=== PATIENT | male | born 1940 | race Caucasian/White ===

== ENCOUNTER 2020-01-23 08:07 | Outpatient (REF) | payer MEDICARE, SELFPAY ==
[2020-01-23 12:46] LABS: Alanine Aminotransferase 16 U/L (0-40); Albumin Level 3.9 g/dL (3.5-5.0); Alkaline Phosphatase 66 U/L (39-117); Anion Gap 12 (12-20); Aspartate Amino Transferase 17 U/L (5-37); Bilirubin Total 0.7 mg/dL (0.0-1.0); Blood Urea Nitrogen 14 mg/dL (9-16); Calcium 8.7 mg/dL (8.4-10.2); Carbon Dioxide 29 mmol/L (22-29); Chloride 102 mmol/L (96-108); Cholesterol 200 mg/dL; Estimated Glomerular Filt Rate > 60; Glucose Fasting 119 mg/dL (60-99); HDL Cholesterol 40 mg/dL; LDL Cholesterol Calculated 117 mg/dl; Sodium 139 mmol/L (135-145); Triglycerides 216 mg/dL
[2020-01-23 12:52] LABS: Creatinine Urine 103.56 mg/dL; Microalbumin Urine < 5.0 mg/L
== END 2020-01-23 08:08 | disposition home or self-care (01) ==
LOC: HO.HMGCLDS 08:07
PROVIDERS: PCP Internal Medicine; Visit Provider Internal Medicine
DX: E78.2 Mixed hyperlipidemia (principal); R73.9 Hyperglycemia, unspecified
CPT/HCPCS: 80053; 80061; 82043

== ENCOUNTER 2020-10-13 08:40 | Outpatient (REF) | payer MEDICARE, SELFPAY ==
[2020-10-13 11:45] LABS: Estimated Average Glucose 146 mg/dL; Hemoglobin A1c % 6.7 %
[2020-10-13 11:46] LABS: Alanine Aminotransferase 15 U/L (0-40); Alkaline Phosphatase 54 U/L (39-117); Anion Gap 13 (12-20); Aspartate Amino Transferase 17 U/L (5-37); Bilirubin Total 0.5 mg/dL (0.0-1.0); Blood Urea Nitrogen 14 mg/dL (9-16); Carbon Dioxide 26 mmol/L (22-29); Chloride 106 mmol/L (96-108); Cholesterol 191 mg/dL; Estimated Glomerular Filt Rate > 60; Glucose Fasting 132 mg/dL (60-99); HDL Cholesterol 41 mg/dL; LDL Cholesterol Calculated 122 mg/dl; Potassium 4.5 mmol/L (3.3-5.1); Sodium 140 mmol/L (135-145); Total Protein 7.1 g/dL (6.5-8.0); Triglycerides 144 mg/dL
[2020-10-13 12:10] LABS: TSH reflex Free T4 0.76 uIU/mL (0.32-4.0)
== END 2020-10-13 08:41 | disposition home or self-care (01) ==
LOC: HO.HMGCLDS 08:40
PROVIDERS: PCP Internal Medicine; Visit Provider Internal Medicine
DX: Z00.00 Encounter for general adult medical examination without abnormal findings (principal); E78.5 Hyperlipidemia, unspecified; I10 Essential (primary) hypertension; R73.9 Hyperglycemia, unspecified
CPT/HCPCS: 36415; 80053; 80061; 83036; 84443

== ENCOUNTER 2021-05-24 14:10 | Outpatient (REF) | payer MEDICARE, SELFPAY ==
[2021-05-24 16:58] LABS: Hematocrit 46.4 % (42.0-52.0); Hemoglobin 15.3 g/dl (14.0-18.0); Mean Corpuscular Hemoglobin 31.9 pg (27.0-33.0); Mean Corpuscular Volume 96.9 fL (80.0-98.0); Mean Platelet Volume 9.3 fL (9.4-12.4); Platelet Count 298 X10*3/uL (160-400); Red Blood Count 4.79 X10*6/uL (4.60-5.80); Red Cell Distribution Width 14.1 % (11.0-16.0); White Blood Count 7.9 X10*3/uL (4.8-10.8)
[2021-05-24 16:59] LABS: Appearance Urine CLEAR; Color Urine YELLOW; Glucose Urine UA NEG (NEG); Leukocyte Esterase Urine NEG (NEG); Nitrite Urine NEG (NEG); Specific Gravity - Urine 1.015 (1.005-1.025); UACC Culture Trigger NO; Urine Blood TRACE (NEG); Urine Ketones 40 MG/DL (NEG); Urine Protein NEG (NEG-TRACE)
[2021-05-24 17:12] LABS: Alanine Aminotransferase 20 U/L (0-40); Albumin Level 4.3 g/dL (3.5-5.0); Alkaline Phosphatase 71 U/L (39-117); Anion Gap 13 (12-20); Aspartate Amino Transferase 21 U/L (5-37); Bilirubin Total 0.8 mg/dL (0.0-1.0); Blood Urea Nitrogen 14 mg/dL (9-16); Calcium 9.4 mg/dL (8.4-10.2); Carbon Dioxide 25 mmol/L (22-29); Chloride 102 mmol/L (96-108); Cholesterol 225 mg/dL; Estimated Average Glucose 137 mg/dL; Estimated Glomerular Filt Rate > 60; Glucose Fasting 94 mg/dL (60-99); HDL Cholesterol 43 mg/dL; Hemoglobin A1c % 6.4 %; LDL Cholesterol Calculated 149 mg/dl; Potassium 4.9 mmol/L (3.3-5.1); Sodium 135 mmol/L (135-145); Total Protein 7.8 g/dL (6.5-8.0); Triglycerides 169 mg/dL
[2021-05-24 17:30] LABS: RBC Urine 0-2 /HPF (0); WBC Urine 0-2 /HPF (0-4)
[2021-05-24 17:32] LABS: TSH reflex Free T4 0.54 uIU/mL (0.32-4.0)
== END 2021-05-24 14:11 | disposition home or self-care (01) ==
LOC: HO.HMGCLDS 14:10
PROVIDERS: Visit Provider Internal Medicine
DX: R73.9 Hyperglycemia, unspecified (principal); E78.5 Hyperlipidemia, unspecified; I25.10 Atherosclerotic heart disease of native coronary artery without angina pectoris
CPT/HCPCS: 36415; 80053; 80061; 81001; 83036; 84443; 85027

== ENCOUNTER 2022-04-18 10:10 | Outpatient (REF) | payer MEDICARE, SELFPAY ==
[2022-04-18 11:28] LABS: MANUAL DIFF FLAG NO
[2022-04-18 11:43] LABS: Basophils Absolute Auto 0.1 X10*3/uL (0.0-0.2); Basophils Percent Auto 0.7 % (0-2); Eosinophils Absolute Auto 0.1 X10*3/uL (0.0-0.4); Eosinophils Percent Auto 0.7 % (0-4); Hematocrit 44.3 % (42.0-52.0); Hemoglobin 14.9 g/dl (14.0-18.0); Imm Gran Abs Auto 0.03 X10*3/uL (0.00-0.03); Imm Gran Pct Auto 0.4 % (0.0-0.4); Lymphocytes Percent Auto 40.6 % (20-40); Mean Corpuscular HGB Conc 33.6 g/dl (31.0-36.0); Mean Corpuscular Hemoglobin 31.6 pg (27.0-33.0); Mean Corpuscular Volume 93.9 fL (80.0-98.0); Mean Platelet Volume 9.2 fL (9.4-12.4); Monocytes Absolute Auto 0.5 X10*3/uL (0.1-1.2); Monocytes Percent Auto 6.3 % (2-11); Neutrophils Absolute Auto 3.9 x10*3/uL (2.0-8.3); Neutrophils Percent Auto 51.3 % (45-73); Platelet Count 302 X10*3/uL (160-400); Red Blood Count 4.72 X10*6/uL (4.60-5.80); Red Cell Distribution Width 13.6 % (11.0-16.0); White Blood Count 7.5 X10*3/uL (4.8-10.8)
[2022-04-18 12:03] LABS: Estimated Average Glucose 146 mg/dL; Hemoglobin A1c % 6.7 %
[2022-04-18 12:42] LABS: Alanine Aminotransferase 17 U/L (0-40); Albumin Level 4.2 g/dL (3.5-5.0); Alkaline Phosphatase 64 U/L (39-117); Anion Gap 14 (12-20); Aspartate Amino Transferase 16 U/L (5-37); Bilirubin Total 0.7 mg/dL (0.0-1.0); Blood Urea Nitrogen 17 mg/dL (9-16); Calcium 9.3 mg/dL (8.4-10.2); Carbon Dioxide 25 mmol/L (22-29); Chloride 106 mmol/L (96-108); Estimated Glomerular Filt Rate > 60; Glucose Fasting 136 mg/dL (60-99); Potassium 4.8 mmol/L (3.3-5.1); Sodium 140 mmol/L (135-145); TSH reflex Free T4 1.02 uIU/mL (0.32-4.0); Total Protein 7.3 g/dL (6.5-8.0)
== END 2022-04-18 10:11 | disposition home or self-care (01) ==
LOC: HO.HMGCLDS 10:10
PROVIDERS: PCP Internal Medicine; Visit Provider Internal Medicine
DX: E78.5 Hyperlipidemia, unspecified (principal); R73.9 Hyperglycemia, unspecified; I25.10 Atherosclerotic heart disease of native coronary artery without angina pectoris
CPT/HCPCS: 36415; 80053; 83036; 84443; 85025

== ENCOUNTER 2022-10-07 13:27 | Outpatient (AMB) | payer MEDICARE, SELFPAY ==
[2022-10-07 13:44] VITALS: BP 110/70; PULSE 70; O2SAT 96; BMI 27.7
--- NOTE | 2022-10-07 13:44 | MHC.PC.OV ---
Vital Signs 10/07/22 13:44 Height 5 ft 8 in Weight 182 lb 2 oz BMI 27.7 BP 110/70 Blood Pressure Location Rt brachial Position Sitting Pulse 70 Pulse Source Pulse Oximeter Pulse Oximetry (%) 96 Oxygen Delivery Method Room Air Intake Visit Reasons: high blood sugars Allergies No Known Allergies Allergy (Verified 04/18/22 09:29) Medication List - Last Reconciled 10/07/22 by Jessica Merritt MD No Known Home Meds Tobacco use date assessed: 04/18/22 HPI high blood sugars HPI Details Patient presents complaining of exertional chest tightness last week after walking 2 miles. Symptoms resolved at rest. Patient denies diaphoresis nausea vomiting associated with the pain. Patient denies nocturnal chest pain or shortness of breath. The symptoms are similar to the angina symptoms before a stent placement. [facility] Medical History Annual physical exam Blepharoptosis, bilateral BPH (benign prostatic hyperplasia) CAD (coronary artery disease) Hyperglycemia Hyperlipidemia Melanoma Surgical History H/O colonoscopy Nephrolithiasis Social History Housing: House Patient Tobacco Use Status: Former Tobacco user Quit Date: 20 years ago e-Cigarette/Vaping Use: Never Used Current occupational status: retired Cognitive needs: No Hearing needs: No Vision needs: No Review of Systems Const All systems reviewed & are unremarkable except as noted in HPI and below Reports no additional complaints Eyes Reports no additional complaints ENT Reports no additional complaints Card Reports no additional complaints Resp Reports no additional complaints GI Reports no additional complaints Reports no additional complaints Physical exam (Primary Care) Vital Signs: Last Vital Signs Pulse 70 10/07/22 13:44 BP 110/70 10/07/22 13:44 Pulse Ox 96 10/07/22 13:44 Oxygen Delivery Method Room Air 10/07/22 13:44 BMI result Body Mass Index 27.7 Tobacco/Smoking Status: Tobacco use Status Tobacco use date assessed 04/18/22 10/07/22 13:47 Patient Tobacco Use Status Former Tobacco user 10/07/22 13:47 e-Cigarette/Vaping Use Never Used 10/07/22 13:47 Const General: no acute distress HENMT Ears: hearing grossly normal bilaterally Face and sinus: Yes normal facial exam Neck Neck: Yes supple Resp Effort & Inspection: normal respiratory effort Auscultation: clear to auscultation bilaterally Cardio Rhythm: regular rhythm Heart sounds: S1 normal heart sound present and S2 normal heart sound present GI Inspection: Yes normal to inspection Palpation (GI): Soft to palpation Percussion: Yes normal to percussion Auscultation: normal bowel sounds Extrem General: Yes no clubbing, cyanosis or edema Results AMB Hemoglobin A1c AMB Hemoglobin A1c 6.3 % Last Edit by Prema Hernández CMA on 10/07/22 14:31 Results Reviewed Results Reviewed: Laboratory Last Values Hgb A1c (Clinic) 6.3 % (4.0-6.0) H 10/07/22 14:30 Assessment and Plan Assessment & Plan (1) Hyperglycemia: Code(s): R73.9 - Hyperglycemia, unspecified Plan: A1c today is 6.3, ADA diet discussed with the patient (2) Hyperlipidemia: Comment: Patient refused statin Code(s): E78.5 - Hyperlipidemia, unspecified Plan: Check lipid profile today (3) CAD (coronary artery disease): Comment: s/p 2 stents 2001 Code(s): I25.10 - Atherosclerotic heart disease of [place] coronary artery without angina pectoris Plan: For recurrent episode of chest tightness EKG done today showed normal sinus rhythm, right bundle branch block no acute ST-T changes. Patient will be referred for nuclear stress test to evaluate for reversible ischemia (4) Angina pectoris: Code(s): I20.9 - Angina pectoris, unspecified (5) Diabetes type 2, controlled: Code(s): E11.9 - Type 2 diabetes mellitus without complications Orders: Orders Comprehensive [place]. Panel Fast Today E78.5 - Hyperlipidemia, unspecified, I25.10 - Atherosclerotic heart disease of [place] coronary artery without angina pectoris, R73.9 - Hyperglycemia, unspecified IRON PROFILE Today E78.5 - Hyperlipidemia, unspecified, I25.10 - Atherosclerotic heart disease of [place] coronary artery without angina pectoris, R73.9 - Hyperglycemia, unspecified Lipid Panel Today E78.5 - Hyperlipidemia, unspecified, I25.10 - Atherosclerotic heart disease of [place] coronary artery without angina pectoris, R73.9 - Hyperglycemia, unspecified TSH reflex Free T4 Today E78.5 - Hyperlipidemia, unspecified, I25.10 - Atherosclerotic heart disease of [place] coronary artery without angina pectoris, R73.9 - Hyperglycemia, unspecified Complete Blood Count Auto Diff Today E78.5 - Hyperlipidemia, unspecified, I25.10 - Atherosclerotic heart disease of [place] coronary artery without angina pectoris, R73.9 - Hyperglycemia, unspecified CA stress test Today E11.9 - Type 2 diabetes mellitus without complications, I20.9 - Angina pectoris, unspecified, I25.10 - Atherosclerotic heart disease of [place] coronary artery without angina pectoris NM cardiolite stress test Today I20.9 - Angina pectoris, unspecified, I25.10 - Atherosclerotic heart disease of [place] coronary artery without angina pectoris AMB Hemoglobin A1c Today E11.9 - Type 2 diabetes mellitus without complications Coding Level of Care Code Est Pt Level 4 (19594) Diagnoses Hyperglycemia R73.9 Hyperlipidemia E78.5 CAD (coronary artery disease) I25.10 Angina pectoris I20.9 Diabetes type 2, controlled E11.9
== END 2022-10-07 15:02 | disposition home or self-care (01) ==
PROVIDERS: PCP Internal Medicine; Visit Provider Internal Medicine
DX: I25.119 Atherosclerotic heart disease of native coronary artery with unspecified angina pectoris (principal); E11.65 Type 2 diabetes mellitus with hyperglycemia; E78.5 Hyperlipidemia, unspecified
CPT/HCPCS: 83036; 99214

== ENCOUNTER 2022-10-07 14:40 | Outpatient (REF) | payer MEDICARE, SELFPAY ==
[2022-10-07 16:09] LABS: MANUAL DIFF FLAG NO
[2022-10-07 16:29] LABS: Basophils Percent Auto 0.5 % (0-2); Eosinophils Absolute Auto 0.1 X10*3/uL (0.0-0.4); Eosinophils Percent Auto 0.8 % (0-4); Hematocrit 42.1 % (42.0-52.0); Hemoglobin 14.2 g/dl (14.0-18.0); Imm Gran Abs Auto 0.02 X10*3/uL (0.00-0.03); Imm Gran Pct Auto 0.3 % (0.0-0.4); Lymphocytes Absolute Auto 3.4 X10*3/uL (1.2-4.9); Lymphocytes Percent Auto 43.3 % (20-40); Mean Corpuscular HGB Conc 33.7 g/dl (31.0-36.0); Mean Corpuscular Volume 94.8 fL (80.0-98.0); Mean Platelet Volume 9.4 fL (9.4-12.4); Monocytes Absolute Auto 0.6 X10*3/uL (0.1-1.2); Monocytes Percent Auto 7.2 % (2-11); Neutrophils Absolute Auto 3.8 x10*3/uL (2.0-8.3); Neutrophils Percent Auto 47.9 % (45-73); Platelet Count 291 X10*3/uL (160-400); Red Blood Count 4.44 X10*6/uL (4.60-5.80); Red Cell Distribution Width 14.2 % (11.0-16.0); White Blood Count 7.9 X10*3/uL (4.8-10.8)
[2022-10-07 16:53] LABS: Alanine Aminotransferase 14 U/L (0-40); Albumin Level 4.1 g/dL (3.5-5.0); Alkaline Phosphatase 66 U/L (39-117); Anion Gap 15 (12-20); Aspartate Amino Transferase 19 U/L (5-37); Bilirubin Total 0.9 mg/dL (0.0-1.0); Blood Urea Nitrogen 11 mg/dL (9-16); Calcium 9.3 mg/dL (8.4-10.2); Carbon Dioxide 22 mmol/L (22-29); Chloride 106 mmol/L (96-108); Cholesterol 195 mg/dL; Estimated Glomerular Filt Rate > 60; Glucose Fasting 95 mg/dL (60-99); HDL Cholesterol 46 mg/dL; Iron 160 mcg/dL (45-160); LDL Cholesterol Calculated 121 mg/dl; Percent Iron Saturation 57 % (15-50); Sodium 139 mmol/L (135-145); Total Iron Binding Capacity 279 mcg/dL (228-428); Total Protein 7.7 g/dL (6.5-8.0); Triglycerides 142 mg/dL; Unsaturated Iron Binding 119 ug/dL
[2022-10-07 17:10] LABS: TSH reflex Free T4 0.58 uIU/mL (0.32-4.0)
== END 2022-10-07 14:41 | disposition home or self-care (01) ==
LOC: HO.HMGCLDS 14:40
PROVIDERS: PCP Internal Medicine; Visit Provider Internal Medicine
DX: I25.10 Atherosclerotic heart disease of native coronary artery without angina pectoris (principal); I20.9 Angina pectoris, unspecified; E11.9 Type 2 diabetes mellitus without complications; E78.5 Hyperlipidemia, unspecified; R73.9 Hyperglycemia, unspecified
CPT/HCPCS: 36415; 80053; 80061; 83540; 84443; 85025

== ENCOUNTER → 2022-11-03 08:19 | Outpatient (REF) | payer MEDICARE, SELFPAY ==
--- NOTE | ~2022-11-03 | NM_ITS ---
Exercise myocardial perfusion study Indication: Angina pectoris to evaluate for myocardial ischemia Technique: The patient was brought in for a exercise perfusion study on 11/03/2022. Patient performed exercise and was monitored continuously. Within a minute of exercise injection, 30 mCi of sestamibi was given intravenously. Images were obtained using the SPECT gamma camera interlaced with the gating device. Images were obtained in supine position. Resting perfusion study was performed on 11/04/2022. Patient was administered 30 mCi of sestamibi intravenously at rest. Images were then obtained in supine position. Images obtained with and without CT attenuation. Total DLP 101 mGy-cm. Images were processed with the software and compared side to side in short axis, horizontal long axis and vertical long axis views. Findings: The stress perfusion study showed non attenuated images show absent uptake in the inferior as well as apical wall as well as the chest and inferolateral and severely reduced uptake in the lateral wall of the LV myocardium. Attenuation corrected images show absent uptake in the inferior and apical wall as well as inferolateral wall of the LV myocardium with severely reduced uptake in the lateral wall of the LV myocardium.. The gated study shows normal LV systolic function with calculated LVEF of 38%. LV cavity is mildly to moderately dilated size. The gated study shows reduced wall thickening and contraction of inferior inferolateral segments. Resting study shows minimally improved uptake in the inferior and mildly to moderately thickened inferolateral as well as normalized uptake in the lateral wall of the LV myocardium.. Gating at rest reveals normal systolic wall motion with ejection fraction at 57%. The findings are consistent with large area of possible severe ischemia in the inferior as well as inferolateral and moderate intensity ischemia in the lateral wall of the LV myocardium in RCA/circumflex territory.. NM/NM cardiolite stress test Impression: 1. Myocardial perfusion imaging study shows large area of possibly severe ischemia in the inferior as well as adjacent inferolateral moderate intensity lateral wall ischemia 2. Gated LVEF is 38% with stress and 57% with rest 3. Transient ischemic dilatation present EKG is positive for ischemia and discomfort
--- NOTE | 2022-11-03 08:21 | CA_ITS ---
Acquisition Time: 2022-11-03 08:54:54 Total Exercise Time: 00:09:33 Test Indications: ANGINA Medications: SEE H Protocol: OSMIN Max HR: 113 BPM 82% of Pred: 137 BPM Max BP: 158/090 mmHG Max Work Load: 11.0 METS Exercise stress test exercise 9 min 33 sec of Osmin protocol achieving 82& and 11 METs, with mild ot moderate SOB, 4/10 mid chest tightness, with isolarted PVCs, with normotensive response to exercise, without EKG chnages. Nuclear images pending. Test reviewed with Dr. Huerta. Referred By: Jessica Merritt Overread By: Troy Huerta
== END ==
LOC: HO.CARD 08:19
PROVIDERS: PCP Internal Medicine; Visit Provider Internal Medicine
DX: I25.119 Atherosclerotic heart disease of native coronary artery with unspecified angina pectoris (principal); E11.9 Type 2 diabetes mellitus without complications
CPT/HCPCS: 78452; 93017; A9500; J0280; J2785

== ENCOUNTER → 2022-11-03 09:24 | Outpatient (BNV) | payer MEDICARE, SELFPAY | PROVIDERS: PCP Internal Medicine; Visit Provider Internal Medicine Cardiovascular Disease | DX: I25.119 Atherosclerotic heart disease of native coronary artery with unspecified angina pectoris (principal) | CPT/HCPCS: 78452; 93016; 93018 ==

== ENCOUNTER 2022-11-21 10:25 | Outpatient (REF) | payer MEDICARE, SELFPAY ==
[2022-11-21 11:58] LABS: Hematocrit 42.6 % (42.0-52.0); Hemoglobin 14.4 g/dl (14.0-18.0); Mean Corpuscular HGB Conc 33.8 g/dl (31.0-36.0); Mean Corpuscular Hemoglobin 32.7 pg (27.0-33.0); Mean Corpuscular Volume 96.6 fL (80.0-98.0); Mean Platelet Volume 9.3 fL (9.4-12.4); Platelet Count 255 X10*3/uL (160-400); Red Blood Count 4.41 X10*6/uL (4.60-5.80); Red Cell Distribution Width 14.6 % (11.0-16.0); White Blood Count 8.1 X10*3/uL (4.8-10.8)
[2022-11-21 12:01] LABS: INTERNATIONAL NORM RATIO 0.9 (0.9-1.1); Prothrombin Time 11.1 SEC (11.1-13.3)
[2022-11-21 12:40] LABS: Estimated Average Glucose 126 mg/dL
[2022-11-21 13:51] LABS: Anion Gap 10 (12-20); Blood Urea Nitrogen 19 mg/dL (9-16); Calcium 9.5 mg/dL (8.4-10.2); Carbon Dioxide 26 mmol/L (22-29); Chloride 109 mmol/L (96-108); Estimated Glomerular Filt Rate > 60; Glucose Random 118 mg/dL (60-115); Potassium 4.3 mmol/L (3.3-5.1); Sodium 141 mmol/L (135-145)
== END 2022-11-21 10:26 | disposition home or self-care (01) ==
LOC: HO.LAB 10:25
PROVIDERS: PCP Internal Medicine; Visit Provider Internal Medicine
DX: I25.118 Atherosclerotic heart disease of native coronary artery with other forms of angina pectoris (principal); E11.9 Type 2 diabetes mellitus without complications; R94.39 Abnormal result of other cardiovascular function study
CPT/HCPCS: 36415; 80048; 83036; 85027; 85610

== ENCOUNTER 2022-11-21 10:25 | Outpatient (AMB) | payer MEDICARE, SELFPAY ==
[2022-11-21 10:27] VITALS: BP 142/86; PULSE 83; BMI 28.0
--- NOTE | 2022-11-21 10:27 | MHC.OFFVIS ---
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 According to patient, he underwent cardiac catheterization in 2001 and right coronary artery stenting-based on the card he brought. Patient is Citizen [place] speaking only and used neuropsychiatrist for the same. He states that recently he has been noticing discomfort in the chest whenever he is walking. After he stops, it gets better. In spite of having received a stent, he has not really on any medications. Per PCP note, patient apparently refused statins in the past. Not on aspirin either. He recently underwent a stress test which was abnormal and hence he has been referred here. [facility] Medical History Annual physical exam Blepharoptosis, bilateral BPH (benign prostatic hyperplasia) CAD (coronary artery disease) Hyperglycemia Hyperlipidemia Melanoma Surgical History H/O colonoscopy Nephrolithiasis Social History Housing: House Patient Tobacco Use Status: Former Tobacco user Quit Date: 20 years ago e-Cigarette/Vaping Use: Never Used Current occupational status: retired Cognitive needs: No Hearing needs: No Vision needs: No Review of Systems Const Denies chills, Denies daytime sleepiness, Denies fatigue, Denies fever(s), Denies frequent falls, Denies night sweats, Denies snoring, Denies weakness, Denies weight gain and Denies weight loss Eyes Denies loss of vision ENT Denies dizziness and Denies hearing loss Card Denies chest pain, Denies chest pain with activity, Denies syncope, Denies rapid heart rate, Denies edema, Denies claudication, Denies leg edema, Denies lightheadedness, Denies palpitations, Denies dyspnea, Denies dyspnea on exertion and Denies orthopnea Resp Denies cough, Denies excessive phlegm production, Denies dyspnea, Denies dyspnea on exertion, Denies snoring and Denies wheezing GI Denies abdominal pain, Denies hematochezia, Denies change in bowel habits, Denies change in stool character, Denies heartburn, Denies nausea and Denies vomiting Denies hematuria, Denies dysuria and Denies urinary frequency Musc Denies arthralgias, Denies muscle weakness, Denies numbness and Denies tingling Skin/Breast Denies nail changes and Denies rash Neuro Denies Abnormal speech present, Denies dizziness, Denies syncope, Denies frequent falls, Denies loss of vision, Denies memory loss, Denies numbness, Denies tingling and Denies weakness Psych Denies depression and Denies memory loss Endo Denies fatigue and Denies palpitations Aller/Immun Denies wheezing Physical Exam Vital Signs: Last Vital Signs Pulse 83 11/21/22 10:27 BP 142/86 H 11/21/22 10:27 BMI result Body Mass Index 28.0 Const General: comfortable and no acute distress Orientation/consciousness: patient oriented x3 HEENT Other: Unremarkable Head: Yes normal to inspection Neck Neck: Yes normal visual inspection Chest Chest palpation & inspection: normal inspection of the chest Resp Auscultation: clear to auscultation bilaterally Cardio Palpation: normal PMI Heart sounds: S1 normal heart sound present, S2 normal heart sound present, no gallops, no murmurs and no rubs GI Palpation (GI): Soft to palpation Back/Spine/Pelvis Other: unremarkable Skin General skin exam: no rashes or lesions noted Neuro General: patient oriented x3 Speech: No Abnormal speech present Extrem General: Yes normal to inspection Psych Mental Status: mental status grossly normal Assessment & Plan Assessment & Plan (1) CAD (coronary artery disease): Comment: s/p 2 stents 2001 Code(s): I25.10 - Atherosclerotic heart disease of [place] coronary artery without angina pectoris Qualifiers: Coronary Disease-Associated Artery/Lesion type: [place] artery [place] vs. transplanted heart: [place] heart Associated angina: with stable angina Qualified Code(s): I25.118 - Atherosclerotic heart disease of [place] coronary artery with other forms of angina pectoris (2) Angina pectoris: Code(s): I20.9 - Angina pectoris, unspecified (3) Abnormal stress test: Code(s): R94.39 - Abnormal result of other cardiovascular function study Plan Cardiac studies reviewed. In the recent EKG, underlying rhythm is sinus; right bundle-branch block pattern; nonspecific QRS widening; cannot exclude old septal infarct. In the stress test, he did do well to [facility] meds but developed chest tightness. Perfusion component reported to have possible severe ischemia in the inferior/inferolateral wall and moderate density lateral wall ischemia. LVEF was 38% with stress and 57% with rest. Reported to have transient ischemic dilatation. History of remote PCI to RCA about 20 years ago. Based on symptoms and findings above, recommend diagnostic cardiac catheterization. For medications, start low-dose aspirin. Start some beta-blockers. SL nitroglycerin as needed. Per PCP note, had refused statins but we will need to readdress this post catheterization. Otherwise, get labs as well as echocardiogram. Cardiac catheterization to be scheduled. Discussed with patient, using [place] neuropsychiatrist. Orders: Orders Complete Blood Count no Diff Today I25.10 - Atherosclerotic heart disease of [place] coronary artery without angina pectoris Prothrombin Time INR Today I25.10 - Atherosclerotic heart disease of [place] coronary artery without angina pectoris CA echo transthoracic complete Today I20.9 - Angina pectoris, unspecified Basic Metabolic Panel Today I25.10 - Atherosclerotic heart disease of [place] coronary artery without angina pectoris Medications: New metoprolol succinate ER (Toprol XL) 25 mg PO DAILY 90 tabs 3RF I20.9 - Angina pectoris, unspecified aspirin (Adult Low Dose Aspirin) 81 mg PO DAILY 90 tabs 3RF I20.9 - Angina pectoris, unspecified nitroglycerin do not exceed 3 doses per episode 0.4 mg sublingual Q5M PRN 30 tabs 5RF chest pain I20.9 - Angina pectoris, unspecified, R07.2 - Precordial pain Coding Level of Care Code New Pt Level 5 (38028) Diagnoses Coronary artery disease of [place] artery of [place] heart with stable angina pectoris I25.118 Coronary Disease-Associated Artery/Lesion type: [place] artery [place] vs. transplanted heart: [place] heart Associated angina: with stable angina Angina pectoris I20.9 Abnormal stress test R94.39
== END 2022-11-21 10:57 | disposition home or self-care (01) ==
PROVIDERS: PCP Internal Medicine; Visit Provider Internal Medicine
DX: I25.118 Atherosclerotic heart disease of native coronary artery with other forms of angina pectoris (principal); R94.39 Abnormal result of other cardiovascular function study
CPT/HCPCS: 99204

== ENCOUNTER → 2022-11-22 13:40 | Outpatient (REF) | payer MEDICARE, SELFPAY ==
--- NOTE | 2022-11-22 13:44 | CA_ITS ---
Transthoracic Echocardiogram Patient (Last, First, Middle): Johana Barnett, Gender: Male Date of : 1940 Age: 82 Procedure Date: 11/22/2022 Procedure Type: Transthoracic Echocardiogram Location: OP Height: 170.18 cm Weight: 81.65 kg BSA: 1.93 m2 Heart Rate: 70 bpm BP: 142 / 86 mmHg Dinkey Brakeman: SB Referring MD: Rashid Frost MD Symptoms: I20.9 - Angina pectoris, unspecified Study Quality: Adequate w contrast ECG Rhythm: Sinus Conclusions: - The left ventricular systolic function is normal. The visually estimated ejection fraction is between 55-60%. - The inferoseptal wall, the basal inferior, mid inferior, and basal inferolateral segments are hypokinetic. - No obvious valvular pathology seen on this study. Findings Procedure Information Contrast agent, definity, is being given per protocol without apparent complications. Left Ventricle Normal left ventricular cavity size. There is moderately increased left ventricular wall thickness. The left ventricular systolic function is normal. The visually estimated ejection fraction is between 55-60%. There is evidence of regional wall motion abnormalities. Evidence suggests grade I (mild) diastolic dysfunction. Wall Motion Rest Echo Findings The inferoseptal wall, the basal inferior, mid inferior, and basal inferolateral segments are hypokinetic. Right Ventricle Mildly increased right ventricular cavity size. There is low normal right ventricular systolic function. Atria Both atria are normal in size. Aortic Valve There is a normal trileaflet aortic valve. There is mild calcification of the aortic valve. There is no aortic valve stenosis. There is no aortic valve regurgitation. Mitral Valve The mitral valve appears normal. There is no mitral valve regurgitation. There is no mitral valve stenosis. Pulmonic Valve The pulmonic valve is likely normal. Tricuspid Valve Normal tricuspid valve structure. There is trace tricuspid valve regurgitation. There is no evidence of pulmonary hypertension. Great Vessels The asc aorta is normal in size. Venous The inferior vena cava is normal in size and collapses less than 50% with inspiration. Pericardium/Pleural There is a trivial pericardial effusion. Prior Study Comparison No prior study available for comparison. Recommendations, Care & Conclusions No obvious valvular pathology seen on this study. Measurements 2D Linear Measurements IVSd: 1.30 0.6-0.9/0.6-1.0 cm LVIDd: 4.70 3.9-5.3/4.2-5.9 cm LVIDd Index: 2.44 2.4-3.2/2.2-3.1 cm/m2 LVIDs: 3.10 2.0-3.6 cm LVPWd: 0.80 0.7-1.1 cm LA Diam: 3.40 2.7-3.8/3.0-4.0 cm LAIDs Index: 1.76 1.5-2.3 cm/m2 LV Mass: 219.03 67-162/88-224 g LV Mass Index: 113.49 43-95/49-115 g/m2 LVOT Diam: 2.40 3.0+(-)1.3 cm 2D Systolic Function EF 4C: 63.50 >55% EF 2C: 61.60 >55% EF BiP: 62.70 >55% Mitral Valve MV Pk E: 0.77 MV PK A: 1.14 MV Decel Time: 218.00 E/A: 0.70 E'Lateral: 7.07 E'Medial: 4.57 E/E' Med: 16.90 E/E' Lat: 10.90 PHT: 64.00 MVA PHT: 3.44 Decel [place]: 3.53 Aortic Valve AoV Pk Minor: 1.33 AoV Pk Grad: 7.00 KEITH: 3.57 LVOT LVOT Pk Minor: 1.02 LVOT Mn Minor: 0.74 LVOT VTI: 0.22 LVOT Pk Grad: 4.00 LVOT Mn Grad: 3.00 LVOT Diam: 2.40 LVOT Area: 4.52 Diastolic Function MV Pk E: 0.77 MV Pk A: 1.14 E/A: 0.70 E'Medial: 4.57 E/E' Med: 16.90 E' Laterial: 7.07 E/E' Lat: 10.90 Right Ventricle TAPSE (mm): 18.40 TVS' Minor: 10.60 Tricuspid Valve RA Press: 8.00 Great Vessels Aorta Sinus of Valsalva: 3.40 2.0-3.5 cm Ao Asc: 3.80 2.1-3.4 cm Pulmonary Veins Pulm Vein S/D 1.20 Pulmonary Valve PV Pk Minor: 1.32 Peak PV Grad: 7.00 Updated in Other Vendor System with Status of Final Rashid Frost MD electronically signed on 11/22/2022 3:15:41 PM with status of Final
== END ==
LOC: HO.CARD 13:40
PROVIDERS: PCP Internal Medicine; Visit Provider Internal Medicine
DX: I20.9 Angina pectoris, unspecified (principal)
CPT/HCPCS: 93306; Q9957

== ENCOUNTER → 2022-11-22 13:44 | Outpatient (BNV) | payer MEDICARE, SELFPAY | PROVIDERS: PCP Internal Medicine; Visit Provider Internal Medicine | DX: I34.81 Nonrheumatic mitral (valve) annulus calcification (principal); I51.9 Heart disease, unspecified | CPT/HCPCS: 93306 ==

== ENCOUNTER → 2022-11-23 23:59 | Outpatient (BNV) | payer MEDICARE, SELFPAY | PROVIDERS: PCP Internal Medicine; Visit Provider Internal Medicine Cardiovascular Disease | DX: I20.8 Other forms of angina pectoris (principal); R93.1 Abnormal findings on diagnostic imaging of heart and coronary circulation | CPT/HCPCS: 93458; 99152 ==

== ENCOUNTER 2023-01-03 13:41 | Outpatient (AMB) | payer MEDICARE, SELFPAY ==
[2023-01-03 14:00] VITALS: BP 126/66; PULSE 77; BMI 28.3
--- NOTE | 2023-01-03 14:00 | MHC.OFFVIS ---
Intake Vital Signs 01/03/23 14:00 Height 5 ft 8 in Weight 186 lb 1.122 oz BMI 28.3 BP 126/66 Blood Pressure Location Lt brachial Position Sitting Pulse 77 Intake Visit Reasons: follow up Intake Note: follow up [place] Sewer Required: No Accompanied by: granddaughter Allergies No Known Allergies Allergy (Verified 01/03/23 14:09) Medication List - Last Reconciled 01/03/23 by Rashid Frost MD amlodipine 2.5 mg PO DAILY aspirin (Adult Low Dose Aspirin) 81 mg PO DAILY isosorbide mononitrate ER 30 mg PO DAILY metoprolol succinate ER (Toprol XL) 25 mg PO DAILY nitroglycerin 0.4 mg sublingual Q5M PRN rosuvastatin 40 mg PO DAILY HPI HPI Comments History of Present Illness Details Johana returns for follow-up after recent cardiac catheterization. He was seen regarding exertional chest pain and hence underwent further workup with catheterization. That showed multivessel disease and he was seen by cardiac surgeon. However, there was significant aortic calcification and hence he was not felt to be a good surgical candidate. In the interim, he has been placed on medical therapy for coronary disease/angina. Otherwise, in 2001, he underwent right coronary artery stenting. He only speaks [place]. His granddaughter is with him and helps with translation. Appropriate form signed. Since last seen, he is on a good regimen of medications and has got absolutely no symptoms. No angina at all. Resolved. [facility], [facility] Medical History Annual physical exam Blepharoptosis, bilateral BPH (benign prostatic hyperplasia) CAD (coronary artery disease) Hyperglycemia Hyperlipidemia Melanoma Surgical History H/O colonoscopy Nephrolithiasis Family History (Updated 01/03/23 @ 14:18 by Rashid Frost MD) Father CAD (coronary artery disease) Brother CAD (coronary artery disease) Social History Housing: House Patient Tobacco Use Status: Former Tobacco user Quit Date: 20 years ago e-Cigarette/Vaping Use: Never Used Current occupational status: retired Cognitive needs: No Hearing needs: No Vision needs: No Review of Systems Const All systems reviewed & are unremarkable except as noted in HPI and below Reports as per HPI and Reports no additional complaints Eyes Reports as per HPI and Denies no additional complaints ENT Denies no additional complaints and Reports as per HPI Card Reports as per HPI, Reports no additional complaints, Denies acrocyanosis, Denies chest pain, Denies leg edema, Denies lightheadedness, Denies palpitations and Denies dyspnea Resp Reports as per HPI, Denies no additional complaints and Denies dyspnea GI Reports as per HPI and Denies no additional complaints Reports no additional complaints and Reports as per HPI Musc Reports no additional complaints and Reports as per HPI Skin/Breast Reports system reviewed and no additional complaints, except as documented Neuro Reports no additional complaints and Reports as per HPI Psych Reports no additional complaints and Reports as per HPI Endo Reports no additional complaints, Reports as per HPI and Denies palpitations Ilir/Lymph Reports no additional complaints and Reports as per HPI Aller/Immun Reports no additional complaints and Reports as per HPI Physical Exam Vital Signs: Last Vital Signs Pulse 77 01/03/23 14:00 BP 126/66 01/03/23 14:00 BMI result Body Mass Index 28.3 Const General: comfortable and no acute distress Orientation/consciousness: patient oriented x3 HEENT Other: Unremarkable Head: Yes normal to inspection Neck Neck: Yes normal visual inspection Chest Chest palpation & inspection: normal inspection of the chest Resp Auscultation: clear to auscultation bilaterally Cardio Palpation: normal PMI Heart sounds: S1 normal heart sound present, S2 normal heart sound present, no gallops, no murmurs and no rubs GI Palpation (GI): Soft to palpation Back/Spine/Pelvis Other: unremarkable Skin General skin exam: no rashes or lesions noted Neuro General: patient oriented x3 Extrem General: Yes normal to inspection Psych Mental Status: mental status grossly normal Assessment & Plan Assessment & Plan (1) CAD (coronary artery disease): Comment: s/p 2 stents 2001 Code(s): I25.10 - Atherosclerotic heart disease of [place] coronary artery without angina pectoris Qualifiers: Associated angina: with stable angina Coronary Disease-Associated Artery/Lesion type: [place] artery [place] vs. transplanted heart: [place] heart Qualified Code(s): I25.118 - Atherosclerotic heart disease of [place] coronary artery with other forms of angina pectoris (2) Angina pectoris: Code(s): I20.9 - Angina pectoris, unspecified Plan Cardiac studies reviewed. In the recent EKG, underlying rhythm is sinus; right bundle-branch block pattern; nonspecific QRS widening; cannot exclude old septal infarct. In the stress test, he did upto 11METS but developed chest tightness. Perfusion component reported to have possible severe ischemia in the inferior/inferolateral wall and moderate density lateral wall ischemia. LVEF was 38% with stress and 57% with rest. Reported to have transient ischemic dilatation. Echocardiogram with LVEF of 55-60%. Inferior/inferoseptal/inferolateral hypokinesis. Cardiac catheterization showed TURN DOWN WORKER of the RCA with [id number] collaterals; diffuse LAD disease and severe ostial D1/D2/OM1 stenosis. Seen cardiac surgeon but not felt to be a good surgical candidate due to aortic calcification. Discussed with , and PCI to LAD will require multiple stents as it is diffuse disease. RCA has TURN DOWN WORKER. Hence continue medical therapy for now. Clinically, he has got no angina at all. He is on a good regimen including aspirin, nitrates, beta-blockers and statins. Sublingual nitroglycerin as needed. Discussed with granddaughter. They will contact us with ongoing concerns. Total time spent including review of data, counseling, documentation, coordination of care-32 minutes. Coding Level of Care Code Est Pt Level 4 (74798) Diagnoses Coronary artery disease of [place] artery of [place] heart with stable angina pectoris I25.118 Associated angina: with stable angina Coronary Disease-Associated Artery/Lesion type: [place] artery [place] vs. transplanted heart: [place] heart Angina pectoris I20.9
== END 2023-01-03 14:24 | disposition home or self-care (01) ==
PROVIDERS: PCP Internal Medicine; Visit Provider Internal Medicine
DX: I25.118 Atherosclerotic heart disease of native coronary artery with other forms of angina pectoris (principal)
CPT/HCPCS: 99214

== ENCOUNTER → 2023-01-03 13:41 | Outpatient (BNVA) | payer MEDICARE, SELFPAY | PROVIDERS: PCP Internal Medicine; Visit Provider Internal Medicine | DX: I25.118 Atherosclerotic heart disease of native coronary artery with other forms of angina pectoris (principal) | CPT/HCPCS: 99212 ==

== ENCOUNTER 2023-03-21 13:26 | Outpatient (AMB) | payer MEDICARE, SELFPAY ==
--- NOTE | 2023-03-21 13:31 | MHC.PC.OV ---
Vital Signs 03/21/23 13:37 Height 5 ft 8 in Weight 180 lb BMI 27.4 BP 114/66 Blood Pressure Location Lt brachial Position Sitting Pulse 71 Pulse Source Pulse Oximeter Pulse Oximetry (%) 96 Oxygen Delivery Method Room Air Intake Visit Reasons: Follow up Intake Note: Pt is here today for a followup visit. Allergies No Known Allergies Allergy (Verified 03/21/23 13:38) Medication List - Last Reconciled 03/21/23 by Jessica Merritt MD amlodipine 2.5 mg PO DAILY aspirin (Adult Low Dose Aspirin) 81 mg PO DAILY isosorbide mononitrate ER 30 mg PO DAILY metoprolol succinate ER (Toprol XL) 25 mg PO DAILY nitroglycerin 0.4 mg sublingual Q5M PRN rosuvastatin 40 mg PO DAILY Tobacco use date assessed: 03/21/23 Fall risk assessment: No Falls in past year Last assessed Fall Risk: 03/21/23 Dental Screening Dental Screen Date: 03/21/23 Did you have a dental visit in the last 12 months?: Yes Did you have a dental problem in the last 6 months where you did not have access to dental care?: No Was dental information given to patient?: Patient has dentist HPI Follow up HPI Details pt presents for PE. Patient underwent cardiac catheterization for positive stress test in 12/26 and was found to have 4 vessel disease, evaluated but cardiac surgeon at [facility] but was found not to be a candidate for CABG. Patient walks daily for 4 miles and denies exertional chest , shortness of breath or palpitations, [facility] Medical History (Updated 03/21/23 @ 13:57 by Jessica Merritt MD) Melanoma Blepharoptosis, bilateral Hyperglycemia Annual physical exam BPH (benign prostatic hyperplasia) Hyperlipidemia CAD (coronary artery disease) Surgical History H/O colonoscopy Nephrolithiasis Family History (Updated 03/21/23 @ 13:44 by Aissatou Rider [facility]) Father CAD (coronary artery disease) Brother CAD (coronary artery disease) Social History Housing: House Patient Tobacco Use Status: Former Tobacco user Quit Date: 20 years ago e-Cigarette/Vaping Use: Never Used Current occupational status: retired Cognitive needs: No Hearing needs: No Vision needs: No Questionnaire PHQ-9 Over the last 2 weeks, how often have you been bothered by any of the following problems? 1. Little interest or pleasure in doing things: not at all 2. Feeling down, depressed, or hopeless: not at all 3. Trouble falling or staying asleep, or sleeping too much: not at all 4. Feeling tired or having little energy: not at all 5. Poor appetite or overeating: not at all 6. Feeling bad about yourself - or that you are a failure or have let yourself or your family down: not at all 7. Trouble concentrating on things, such as reading the newspaper or watching television: not at all 8. Moving or speaking so slowly that other people could have noticed. Or the opposite - being so fidgety or restless that you have been moving around a lot more than usual: not at all 9. Thoughts that you would be better off or of hurting yourself in some way: not at all Total score: 0 Depression Screening Interpretation: Negative Depression Screening Done: Yes Source: Developed by Drs. Leodan Dee, Xochitl Martínez, Leroy John and colleagues, with an educational jessica from [employer]. Thrive Questionnaire Date Thrive assessed: 03/21/23 I am a: Patient What is your living situation today?: I have a steady place to live Within the past 12 months, did the food you bought not last and you didn't have the money to get more?: Never true Within the past 12 months, did you worry whether your food would run out before you got money to buy more?: Never true Do you have trouble paying for medicines?: No Do you have trouble getting transportation to medical appointments?: No Do you have trouble paying your heating and electricity bill?: No Do you have trouble taking care of your child, family member or friend?: No Do you have trouble with day-to-day activities such as bathing, preparing meals, shopping, managing finances, etc.?: No Are you currently unemployed and looking for a job?: No Are you interested in more education?: No Please select the resources that you would like help with: None Currently or been in a relationship where the following occur: no concerns reported AUDIT C Alcohol Use Questionnaire (AUDIT-C) 1. How often do you have a drink containing alcohol?: Never 3. How often do you have six or more drinks on one occasion?: Never Total Score: 0 CADE-7 AMB Questionnaire CADE-7 Date CADE - 7 assessed: 03/21/23 Feeling nervous, anxious, or on edge: 0 = Not at all Not being able to stop or control worryin = Not at all Worrying too much about different things: 0 = Not at all Trouble relaxin = Not at all Being so restless that it is hard to sit still: 0 = Not at all Becoming easily annoyed or irritable: 0 = Not at all Feeling afraid as if something awful might happen: 0 = Not at all Total CADE-7 score (0-4 normal; 5-9 mild; 10-14 moderate; 15-21 severe): 0 Source: Developed by Drs. Leodan Dee, Xochitl Martínez, Leroy John and colleagues, with an educational jessica from [employer]. Review of Systems Const All systems reviewed & are unremarkable except as noted in HPI and below Reports no additional complaints Eyes Reports no additional complaints ENT Reports no additional complaints Card Reports no additional complaints Resp Reports no additional complaints GI Reports no additional complaints Physical exam (Primary Care) Vital Signs: Last Vital Signs Pulse 71 03/21/23 13:37 BP 114/66 03/21/23 13:37 Pulse Ox 96 03/21/23 13:37 Oxygen Delivery Method Room Air 03/21/23 13:37 BMI result Body Mass Index 27.4 Tobacco/Smoking Status: Tobacco use Status Tobacco use date assessed 03/21/23 03/21/23 13:45 Patient Tobacco Use Status Former Tobacco user 03/21/23 13:31 e-Cigarette/Vaping Use Never Used 03/21/23 13:31 Depression Screening Interpretation: Negative Currently or been in a relationship where the following occur: no concerns reported Const General: no acute distress HENMT Ears: hearing grossly normal bilaterally Face and sinus: Yes normal facial exam Throat: Yes posterior oropharynx normal Eyes General: appearance normal, both eyes and all related structures Resp Effort & Inspection: normal respiratory effort Auscultation: clear to auscultation bilaterally Cardio Rhythm: regular rhythm Heart sounds: S1 normal heart sound present and S2 normal heart sound present GI Inspection: Yes normal to inspection Palpation (GI): Soft to palpation Percussion: Yes normal to percussion Auscultation: normal bowel sounds Assessment and Plan Assessment & Plan (1) Hyperglycemia: Code(s): R73.9 - Hyperglycemia, unspecified Plan: Continue ADA diet check A1c (2) Annual physical exam: Code(s): Z00.00 - Encounter for general adult medical examination without abnormal findings Plan: Well-balanced diet regular physical activity discussed with the patient (3) Hyperlipidemia: Comment: Patient refused statin Code(s): E78.5 - Hyperlipidemia, unspecified Plan: Continue statin (4) CAD (coronary artery disease): Comment: s/p 2 stents 2001, CARDIAC CATH 12/26 4 VESSEL DISEASE not a candidate for CABG by [facility] Code(s): I25.10 - Atherosclerotic heart disease of [place] coronary artery without angina pectoris Qualifiers: Associated angina: with stable angina Coronary Disease-Associated Artery/Lesion type: [place] artery [place] vs. transplanted heart: [place] heart Qualified Code(s): I25.118 - Atherosclerotic heart disease of [place] coronary artery with other forms of angina pectoris Plan: Continue current medications and follow-up with Cardiology Orders: Orders Comprehensive [place]. Panel Fast Today E78.5 - Hyperlipidemia, unspecified, I25.10 - Atherosclerotic heart disease of [place] coronary artery without angina pectoris, R73.9 - Hyperglycemia, unspecified, Z00.00 - Encounter for general adult medical examination without abnormal findings Hemoglobin A1c Today R73.9 - Hyperglycemia, unspecified, Z00.00 - Encounter for general adult medical examination without abnormal findings Complete Blood Count Auto Diff Today E78.5 - Hyperlipidemia, unspecified, I25.10 - Atherosclerotic heart disease of [place] coronary artery without angina pectoris, R73.9 - Hyperglycemia, unspecified, Z00.00 - Encounter for general adult medical examination without abnormal findings Lipid Panel Today E78.5 - Hyperlipidemia, unspecified, I25.10 - Atherosclerotic heart disease of [place] coronary artery without angina pectoris, R73.9 - Hyperglycemia, unspecified, Z00.00 - Encounter for general adult medical examination without abnormal findings Medications: Changed From aspirin (Adult Low Dose Aspirin) 81 mg PO DAILY 90 tabs 3RF I20.9 - Angina pectoris, unspecified To aspirin (Adult Low Dose Aspirin) 81 mg PO DAILY I20.9 - Angina pectoris, unspecified Coding Level of Care Code Est Pt Prev Care >65y(24274) Diagnoses Hyperglycemia R73.9 Annual physical exam Z00.00 Hyperlipidemia E78.5 Coronary artery disease of [place] artery of [place] heart with stable angina pectoris I25.118 Associated angina: with stable angina Coronary Disease-Associated Artery/Lesion type: [place] artery [place] vs. transplanted heart: [place] heart
[2023-03-21 13:37] VITALS: BP 114/66; PULSE 71; O2SAT 96; BMI 27.4
== END 2023-03-21 14:00 | disposition home or self-care (01) ==
LOC: HO.HMGC 13:26
PROVIDERS: PCP Internal Medicine; Visit Provider Internal Medicine
DX: R73.9 Hyperglycemia, unspecified (principal); Z00.00 Encounter for general adult medical examination without abnormal findings; E78.5 Hyperlipidemia, unspecified; I25.118 Atherosclerotic heart disease of native coronary artery with other forms of angina pectoris
CPT/HCPCS: 99397

== ENCOUNTER 2023-03-21 14:01 | Outpatient (REF) | payer MEDICARE, SELFPAY ==
[2023-03-21 16:01] LABS: MANUAL DIFF FLAG NO
[2023-03-21 16:04] LABS: Basophils Percent Auto 0.4 % (0-2); Eosinophils Absolute Auto 0.1 X10*3/uL (0.0-0.4); Hemoglobin 14.6 g/dl (14.0-18.0); Imm Gran Abs Auto 0.02 X10*3/uL (0.00-0.03); Imm Gran Pct Auto 0.3 % (0.0-0.4); Lymphocytes Absolute Auto 3.5 X10*3/uL (1.2-4.9); Lymphocytes Percent Auto 44.6 % (20-40); Mean Corpuscular HGB Conc 33.2 g/dl (31.0-36.0); Mean Corpuscular Hemoglobin 31.9 pg (27.0-33.0); Mean Corpuscular Volume 96.1 fL (80.0-98.0); Mean Platelet Volume 9.5 fL (9.4-12.4); Monocytes Absolute Auto 0.5 X10*3/uL (0.1-1.2); Monocytes Percent Auto 6.7 % (2-11); Neutrophils Absolute Auto 3.7 x10*3/uL (2.0-8.3); Platelet Count 255 X10*3/uL (160-400); Red Blood Count 4.58 X10*6/uL (4.60-5.80); White Blood Count 7.9 X10*3/uL (4.8-10.8)
[2023-03-21 16:20] LABS: Alanine Aminotransferase 25 U/L (0-40); Albumin Level 4.3 g/dL (3.5-5.0); Alkaline Phosphatase 61 U/L (39-117); Anion Gap 13 (12-20); Aspartate Amino Transferase 26 U/L (5-37); Bilirubin Total 0.8 mg/dL (0.0-1.0); Blood Urea Nitrogen 15 mg/dL (9-16); Calcium 9.5 mg/dL (8.4-10.2); Carbon Dioxide 25 mmol/L (22-29); Chloride 103 mmol/L (96-108); Cholesterol 104 mg/dL (<200); Estimated Glomerular Filt Rate > 60; Glucose Fasting 114 mg/dL (60-99); HDL Cholesterol 47 mg/dL (>40); LDL Cholesterol Calculated 39 mg/dL (<100); Potassium 4.1 mmol/L (3.3-5.1); Sodium 137 mmol/L (135-145); Total Protein 7.8 g/dL (6.5-8.0); Triglycerides 94 mg/dL (<150)
[2023-03-21 16:38] LABS: Estimated Average Glucose 140 mg/dL; Hemoglobin A1c % 6.5 % (<6.0)
== END 2023-03-21 14:02 | disposition home or self-care (01) ==
LOC: HO.HMGCLDS 14:01
PROVIDERS: PCP Internal Medicine; Visit Provider Internal Medicine
DX: Z00.00 Encounter for general adult medical examination without abnormal findings (principal); R73.9 Hyperglycemia, unspecified; E78.5 Hyperlipidemia, unspecified; I25.10 Atherosclerotic heart disease of native coronary artery without angina pectoris
CPT/HCPCS: 36415; 80053; 80061; 83036; 85025

== ENCOUNTER 2023-07-10 10:50 | Outpatient (AMB) | payer MEDICARE, SELFPAY ==
[2023-07-10 11:04] VITALS: BP 116/68; PULSE 78; O2SAT 98; BMI 27.4
--- NOTE | 2023-07-10 11:04 | MHC.OFFVIS ---
Vital Signs 07/10/23 11:04 Height 5 ft 8 in Weight 180 lb BMI 27.4 BP 116/68 Blood Pressure Location Lt brachial Position Sitting Pulse 78 Pulse Source Monitor Pulse Oximetry (%) 98 Oxygen Delivery Method Room Air Intake Visit Reasons: 6 mth f/up Ocular Care Technologist Required: Yes Ocular Care Technologist Name: Claudia Accompanied by: Grand Child Allergies No Known Allergies Allergy (Verified 03/21/23 13:38) Medication List - Last Reconciled 07/10/23 by Rashid Frost MD amlodipine 2.5 mg PO DAILY aspirin (Adult Low Dose Aspirin) 81 mg PO DAILY isosorbide mononitrate ER 30 mg PO DAILY metoprolol succinate ER (Toprol XL) 25 mg PO DAILY nitroglycerin 0.4 mg sublingual Q5M PRN rosuvastatin 40 mg PO DAILY HPI Comments Details: Johana returns for follow-up regarding coronary artery disease. He was seen regarding exertional chest pain and hence underwent further workup with catheterization. That showed multivessel disease and he was seen by cardiac surgeon. However, there was significant aortic calcification and hence he was not felt to be a good surgical candidate. In the interim, he has been placed on medical therapy for coronary disease/angina. Otherwise, in 2001, he underwent right coronary artery stenting. He only speaks [place]. His granddaughter is with him and helps with translation. Overall, no new concerns. He states he is actually doing quite good. Very rare angina. REPLACED BY [facility] Medical History (Updated 03/21/23 @ 13:57 by Jessica Merritt MD) Melanoma Blepharoptosis, bilateral Hyperglycemia Annual physical exam BPH (benign prostatic hyperplasia) Hyperlipidemia CAD (coronary artery disease) Surgical History H/O colonoscopy Nephrolithiasis Family History (Updated 03/21/23 @ 13:44 by Aissatou Rider Sarah) Father CAD (coronary artery disease) Brother CAD (coronary artery disease) Social History Housing: House Patient Tobacco Use Status: Former Tobacco user Quit Date: 20 years ago e-Cigarette/Vaping Use: Never Used Current occupational status: retired Cognitive needs: No Hearing needs: No Vision needs: No Review of Systems Const Denies weakness ENT Denies dizziness Card Denies chest pain, Denies chest pain with activity, Denies syncope, Denies rapid heart rate, Denies pedal edema, Denies edema, Denies leg edema, Denies lightheadedness, Denies palpitations, Denies dyspnea, Denies dyspnea on exertion and Denies orthopnea Resp Denies cough, Denies dyspnea and Denies dyspnea on exertion GI Denies hematochezia and Denies change in stool character Musc Denies abnormal gait, Denies muscle cramps, Denies muscle weakness, Denies numbness, Denies radiating pain into limb and Denies tingling Neuro Denies abnormal gait, Denies dizziness, Denies syncope, Denies numbness, Denies tingling and Denies weakness Endo Denies palpitations Physical Exam Vital Signs: Last Vital Signs Pulse 78 07/10/23 11:04 BP 116/68 07/10/23 11:04 Pulse Ox 98 07/10/23 11:04 Oxygen Delivery Method Room Air 07/10/23 11:04 BMI result Body Mass Index 27.4 Const General: comfortable and no acute distress Orientation/consciousness: patient oriented x3 HEENT Other: Unremarkable Head: Yes normal to inspection Neck Neck: Yes normal visual inspection Chest Chest palpation & inspection: normal inspection of the chest Resp Auscultation: clear to auscultation bilaterally Cardio Palpation: normal PMI Heart sounds: S1 normal heart sound present, S2 normal heart sound present, no gallops, no murmurs and no rubs GI Palpation (GI): Soft to palpation Back/Spine/Pelvis Other: unremarkable Skin General skin exam: no rashes or lesions noted Neuro General: patient oriented x3 Extrem General: Yes normal to inspection Psych Mental Status: mental status grossly normal Assessment & Plan Assessment & Plan (1) CAD (coronary artery disease): Comment: s/p 2 stents 2001, CARDIAC CATH 12/26 4 VESSEL DISEASE not a candidate for CABG by [facility] Code(s): I25.10 - Atherosclerotic heart disease of [place] coronary artery without angina pectoris Category: Medical Qualifiers: Associated angina: with stable angina Coronary Disease-Associated Artery/Lesion type: [place] artery [place] vs. transplanted heart: [place] heart Qualified Code(s): I25.118 - Atherosclerotic heart disease of [place] coronary artery with other forms of angina pectoris (2) Angina pectoris: Code(s): I20.9 - Angina pectoris, unspecified Category: Medical Plan Cardiac studies reviewed. In the stress test, he did upto 11METS but developed chest tightness. Perfusion component reported to have possible severe ischemia in the inferior/inferolateral wall and moderate density lateral wall ischemia. LVEF was 38% with stress and 57% with rest. Reported to have transient ischemic dilatation. Echocardiogram with LVEF of 55-60%. Inferior/inferoseptal/inferolateral hypokinesis. Cardiac catheterization showed 911 DISPATCHER of the RCA with [id number] collaterals; diffuse LAD disease and severe ostial D1/D2/OM1 stenosis. Seen cardiac surgeon but not felt to be a good surgical candidate due to aortic calcification. Discussed with , and PCI to LAD will require multiple stents as it is diffuse disease. RCA has 911 DISPATCHER. Overall, he seems to be fairly stable on medical therapy and hence continue without changes. Continue aspirin, long-acting nitrates, metoprolol ER, amlodipine and statins. Sublingual nitroglycerin as needed. If continuing chest pain, then advised to seek emergency help. Follow-up in 6 months. In the interim, call with concerns. Coding Level of Care Code Est Pt Level 4 (87159) Diagnoses Coronary artery disease of [place] artery of [place] heart with stable angina pectoris I25.118 Associated angina: with stable angina Coronary Disease-Associated Artery/Lesion type: [place] artery [place] vs. transplanted heart: [place] heart Angina pectoris I20.9
== END 2023-07-10 11:21 | disposition home or self-care (01) ==
PROVIDERS: PCP Internal Medicine; Visit Provider Internal Medicine
DX: I25.118 Atherosclerotic heart disease of native coronary artery with other forms of angina pectoris (principal)
CPT/HCPCS: 99214

== ENCOUNTER → 2023-07-10 10:50 | Outpatient (BNVA) | payer MEDICARE, SELFPAY | PROVIDERS: PCP Internal Medicine; Visit Provider Internal Medicine | DX: I25.118 Atherosclerotic heart disease of native coronary artery with other forms of angina pectoris (principal); I10 Essential (primary) hypertension; Z95.5 Presence of coronary angioplasty implant and graft; Z98.890 Other specified postprocedural states | CPT/HCPCS: 99212 ==

== ENCOUNTER 2023-09-04 08:09 | Outpatient (AMB) | payer MEDICARE, SELFPAY ==
[2023-09-04 08:18] VITALS: BP 124/70; PULSE 70; O2SAT 96; BMI 26.8
--- NOTE | 2023-09-04 08:18 | A.OFFPC_ITS ---
Vital Signs 09/04/23 08:18 Height 5 ft 8 in Weight 176 lb BMI 26.8 BP 124/70 Blood Pressure Location Lt brachial Position Sitting Pulse 70 Pulse Source Pulse Oximeter Pulse Oximetry (%) 96 Oxygen Delivery Method Room Air Intake Visit Reasons: Annual PE Intake Note: Pt is here today for PE. Allergies No Known Allergies Allergy (Verified 09/04/23 08:21) Medication List - Last Reconciled 09/04/23 by Jessica Merritt MD amlodipine 2.5 mg PO DAILY aspirin (Adult Low Dose Aspirin) 81 mg PO DAILY isosorbide mononitrate ER 30 mg PO DAILY metoprolol succinate ER (Toprol XL) 25 mg PO DAILY nitroglycerin 0.4 mg sublingual Q5M PRN rosuvastatin 40 mg PO DAILY Tobacco use date assessed: 09/04/23 Fall risk assessment: No Falls in past year Last assessed Fall Risk: 09/04/23 Dental Screening Dental Screen Date: 09/04/23 Did you have a dental visit in the last 12 months?: No Did you have a dental problem in the last 6 months where you did not have access to dental care?: No Was dental information given to patient?: Patient declined HPI Annual PE HPI Details Pt presents for PE. Pt had cardiac cath c/w with significant diffuse CAD and no intervention was recommended. Pt will continue medical management. He denies angina at rest and reports exertional angina, stable and relieved with SL NTG. [facility] Medical History (Updated 09/04/23 @ 08:57 by Jessica Merritt MD) Melanoma Blepharoptosis, bilateral Hyperglycemia Annual physical exam BPH (benign prostatic hyperplasia) Hyperlipidemia CAD (coronary artery disease) Surgical History H/O colonoscopy Nephrolithiasis Family History Father CAD (coronary artery disease) Brother CAD (coronary artery disease) Social History Housing: House Patient Tobacco Use Status: Former Tobacco user e-Cigarette/Vaping Use: Never Used service: No Current occupational status: retired Cognitive needs: No Hearing needs: No Vision needs: No Questionnaire Thrive Questionnaire Date Thrive assessed: 03/21/23 AUDIT C Alcohol Use Questionnaire (AUDIT-C) 1. How often do you have a drink containing alcohol?: Never 3. How often do you have six or more drinks on one occasion?: Never Total Score: 0 CADE-7 AMB Questionnaire CADE-7 Date CADE - 7 assessed: 03/21/23 Source: Developed by Drs. Leodan Dee, Xochitl Martínez, Leroy John and colleagues, with an educational jessica from [employer]. Review of Systems Const All systems reviewed & are unremarkable except as noted in HPI and below ENT Reports no additional complaints Card Reports no additional complaints Resp Reports no additional complaints GI Reports no additional complaints Reports no additional complaints Physical exam (Primary Care) Vital Signs: Last Vital Signs Pulse 70 09/04/23 08:18 BP 124/70 09/04/23 08:18 Pulse Ox 96 09/04/23 08:18 Oxygen Delivery Method Room Air 09/04/23 08:18 BMI result Body Mass Index 26.8 Tobacco/Smoking Status: Tobacco use Status Tobacco use date assessed 09/04/23 09/04/23 08:23 Patient Tobacco Use Status Former Tobacco user 09/04/23 08:20 e-Cigarette/Vaping Use Never Used 09/04/23 08:20 Thrive Assessment: Date of Thrive Assessment Date Thrive assessed 03/21/23 09/04/23 08:20 Const General: no acute distress HENMT Head: Yes normal to inspection Neck Neck: Yes supple Resp Effort & Inspection: normal respiratory effort Auscultation: clear to auscultation bilaterally Cardio Rhythm: regular rhythm Heart sounds: S1 normal heart sound present and S2 normal heart sound present GI Inspection: Yes normal to inspection Palpation (GI): Soft to palpation Percussion: Yes normal to percussion Auscultation: normal bowel sounds Assessment and Plan Assessment & Plan (1) CAD (coronary artery disease): Comment: s/p 2 stents 2001, CARDIAC CATH 12/26 4 VESSEL DISEASE not a candidate for CABG by [facility] Code(s): I25.10 - Atherosclerotic heart disease of [place] coronary artery without angina pectoris Qualifiers: Coronary Disease-Associated Artery/Lesion type: [place] artery [place] vs. transplanted heart: [place] heart Associated angina: with stable angina Qualified Code(s): I25.118 - Atherosclerotic heart disease of [place] coronary artery with other forms of angina pectoris Plan: cont current tx (2) HTN (hypertension): Code(s): I10 - Essential (primary) hypertension Plan: cont meds (3) Angina pectoris: Comment: stable, Code(s): I20.9 - Angina pectoris, unspecified Plan: cont nitrates and f/u with cardiology (4) Hyperlipidemia: Code(s): E78.5 - Hyperlipidemia, unspecified Plan: cont statin (5) Melanoma: Comment: f/u with dermatology Code(s): C43.9 - Malignant melanoma of skin, unspecified Plan: f/u with dermatology (6) Hyperglycemia: Code(s): R73.9 - Hyperglycemia, unspecified Plan: ADA diet and check A1C, F/U 6 MONTHS Orders: Orders Hemoglobin A1c Today I10 - Essential (primary) hypertension, I20.9 - Angina pectoris, unspecified, I25.118 - Atherosclerotic heart disease of [place] coronary artery with other forms of angina pectoris Complete Blood Count Auto Diff Today I10 - Essential (primary) hypertension, I20.9 - Angina pectoris, unspecified, I25.118 - Atherosclerotic heart disease of [place] coronary artery with other forms of angina pectoris Lipid Panel 6 Months E78.5 - Hyperlipidemia, unspecified, I25.118 - Atherosclerotic heart disease of [place] coronary artery with other forms of angina pectoris, R73.9 - Hyperglycemia, unspecified Complete Blood Count Auto Diff 6 Months E78.5 - Hyperlipidemia, unspecified, I25.118 - Atherosclerotic heart disease of [place] coronary artery with other forms of angina pectoris, R73.9 - Hyperglycemia, unspecified Comprehensive [place]. Panel Fast Today I10 - Essential (primary) hypertension, I20.9 - Angina pectoris, unspecified, I25.118 - Atherosclerotic heart disease of [place] coronary artery with other forms of angina pectoris Lipid Panel Today I10 - Essential (primary) hypertension, I20.9 - Angina pectoris, unspecified, I25.118 - Atherosclerotic heart disease of [place] coronary artery with other forms of angina pectoris Microalbumin, Random (w Creat) Today E78.5 - Hyperlipidemia, unspecified, I25.118 - Atherosclerotic heart disease of [place] coronary artery with other forms of angina pectoris, R73.9 - Hyperglycemia, unspecified Comprehensive [place]. Panel Fast 6 Months E78.5 - Hyperlipidemia, unspecified, I25.118 - Atherosclerotic heart disease of [place] coronary artery with other forms of angina pectoris, R73.9 - Hyperglycemia, unspecified Hemoglobin A1c 6 Months E78.5 - Hyperlipidemia, unspecified, I25.118 - Atherosclerotic heart disease of [place] coronary artery with other forms of angina pectoris, R73.9 - Hyperglycemia, unspecified Medications: Refilled amlodipine 2.5 mg PO DAILY 90 tabs 3RF isosorbide mononitrate ER 30 mg PO DAILY 90 tabs 3RF nitroglycerin do not exceed 3 doses per episode 0.4 mg sublingual Q5M PRN 30 tabs 5RF chest pain I20.9 - Angina pectoris, unspecified, R07.2 - Precordial pain metoprolol succinate ER (Toprol XL) 25 mg PO DAILY 90 tabs 3RF I20.9 - Angina pectoris, unspecified rosuvastatin 40 mg PO DAILY 90 tabs 3RF Coding Level of Care Code Est Pt Level 4 (57440) Complex EM visit Add On G2211 Diagnoses Coronary artery disease of [place] artery of [place] heart with stable angina pectoris I25.118 Coronary Disease-Associated Artery/Lesion type: [place] artery [place] vs. transplanted heart: [place] heart Associated angina: with stable angina HTN (hypertension) I10 Angina pectoris I20.9 Hyperlipidemia E78.5 Melanoma C43.9 Hyperglycemia R73.9
== END 2023-09-04 08:59 | disposition home or self-care (01) ==
PROVIDERS: PCP Internal Medicine; Visit Provider Internal Medicine
DX: I25.118 Atherosclerotic heart disease of native coronary artery with other forms of angina pectoris (principal); C43.9 Malignant melanoma of skin, unspecified; I10 Essential (primary) hypertension; E78.5 Hyperlipidemia, unspecified; R73.9 Hyperglycemia, unspecified
CPT/HCPCS: 99214; G2211

== ENCOUNTER 2023-09-05 08:21 | Outpatient (REF) | payer MEDICARE, SELFPAY ==
[2023-09-05 10:46] LABS: MANUAL DIFF FLAG NO
[2023-09-05 11:24] LABS: Basophils Percent Auto 0.5 % (0-2); Eosinophils Absolute Auto 0.1 X10*3/uL (0.0-0.4); Eosinophils Percent Auto 1.5 % (0-4); Hematocrit 41.2 % (42.0-52.0); Hemoglobin 13.9 g/dl (14.0-18.0); Imm Gran Abs Auto 0.02 X10*3/uL (0.00-0.03); Imm Gran Pct Auto 0.2 % (0.0-0.4); Lymphocytes Absolute Auto 3.1 X10*3/uL (1.2-4.9); Lymphocytes Percent Auto 38.4 % (20-40); Mean Corpuscular HGB Conc 33.7 g/dl (31.0-36.0); Mean Corpuscular Hemoglobin 31.9 pg (27.0-33.0); Mean Corpuscular Volume 94.5 fL (80.0-98.0); Mean Platelet Volume 9.2 fL (9.4-12.4); Monocytes Absolute Auto 0.5 X10*3/uL (0.1-1.2); Monocytes Percent Auto 6.7 % (2-11); Neutrophils Absolute Auto 4.2 x10*3/uL (2.0-8.3); Neutrophils Percent Auto 52.7 % (45-73); Platelet Count 257 X10*3/uL (160-400); Red Blood Count 4.36 X10*6/uL (4.60-5.80); Red Cell Distribution Width 14.9 % (11.0-16.0); White Blood Count 8.1 X10*3/uL (4.8-10.8)
[2023-09-05 11:29] LABS: Alanine Aminotransferase 21 U/L (0-40); Alkaline Phosphatase 57 U/L (39-117); Anion Gap 11 (12-20); Aspartate Amino Transferase 25 U/L (5-37); Bilirubin Total 0.7 mg/dL (0.0-1.0); Blood Urea Nitrogen 13 mg/dL (9-16); Calcium 9.1 mg/dL (8.4-10.2); Carbon Dioxide 24 mmol/L (22-29); Chloride 108 mmol/L (96-108); Cholesterol 117 mg/dL (<200); Estimated Glomerular Filt Rate > 60; Glucose Fasting 126 mg/dL (60-99); HDL Cholesterol 50 mg/dL (>40); LDL Cholesterol Calculated 44 mg/dL (<100); Potassium 4.4 mmol/L (3.3-5.1); Sodium 139 mmol/L (135-145); Total Protein 7.1 g/dL (6.5-8.0); Triglycerides 118 mg/dL (<150)
[2023-09-05 11:52] LABS: Estimated Average Glucose 137 mg/dL; Hemoglobin A1c % 6.4 % (<6.0)
[2023-09-05 12:15] LABS: Creatinine Urine 90.04 mg/dL; Microalbumin Urine < 5.0 mg/L
== END 2023-09-05 08:22 | disposition home or self-care (01) ==
LOC: HO.HMGCLDS 08:21
PROVIDERS: PCP Internal Medicine; Visit Provider Internal Medicine
DX: I25.118 Atherosclerotic heart disease of native coronary artery with other forms of angina pectoris (principal); R73.9 Hyperglycemia, unspecified; E78.5 Hyperlipidemia, unspecified; I10 Essential (primary) hypertension
CPT/HCPCS: 36415; 80053; 80061; 82043; 82570; 83036; 85025

== ENCOUNTER 2024-01-16 09:36 | Outpatient (AMB) | payer MEDICARE, SELFPAY ==
--- NOTE | 2024-01-16 10:05 | MHC.OFFVIS ---
Vital Signs 01/16/24 10:06 Height 5 ft 8 in Weight 184 lb 11.958 oz BMI 28.1 BP 138/70 Blood Pressure Location Lt brachial Position Sitting Pulse 71 Intake Visit Reasons: 6 mth f/up Marketing Ambassador Required: Yes Marketing Ambassador Services: Marketing Ambassador Offered & Declined Marketing Ambassador Name: Sandra Regan Accompanied by: Daughter Allergies No Known Allergies Allergy (Verified 09/04/23 08:21) Medication List - Last Reconciled 01/16/24 by Rashid Frost MD amlodipine 2.5 mg PO DAILY aspirin (Adult Low Dose Aspirin) 81 mg PO DAILY isosorbide mononitrate ER 30 mg PO DAILY metoprolol succinate ER (Toprol XL) 25 mg PO DAILY nitroglycerin 0.4 mg sublingual Q5M PRN rosuvastatin 40 mg PO DAILY HPI Comments Details: Johana returns for follow-up regarding coronary artery disease. He was seen regarding exertional chest pain and hence underwent further workup with catheterization. That showed multivessel disease and he was seen by cardiac surgeon. However, there was significant aortic calcification and hence he was not felt to be a good surgical candidate. In the interim, he was placed on medical therapy for coronary disease/angina. Otherwise, in 2001, he underwent right coronary artery stenting. He only speaks Hebrew. His daughter is with him and helps with translation. Overall, he is very active with no issues. No angina whatsoever. [facility] Medical History (Updated 01/16/24 @ 11:42 by Rashid Frost MD) Melanoma Blepharoptosis, bilateral Hyperglycemia Annual physical exam BPH (benign prostatic hyperplasia) Hyperlipidemia CAD (coronary artery disease) Surgical History H/O colonoscopy Nephrolithiasis Family History Father CAD (coronary artery disease) Brother CAD (coronary artery disease) Social History Housing: House Patient Tobacco Use Status: Former Tobacco user e-Cigarette/Vaping Use: Never Used service: No Current occupational status: retired Cognitive needs: No Hearing needs: No Vision needs: No Review of Systems Const Denies chills, Denies fatigue, Denies fever(s), Denies weight gain and Denies weight loss ENT Denies dizziness Card Denies chest pain, Denies leg edema, Denies lightheadedness, Denies palpitations, Denies dyspnea on exertion, Denies orthopnea and Denies other Resp Denies cough and Denies dyspnea on exertion GI Denies hematochezia and Denies change in stool character Musc Denies abnormal gait, Denies muscle weakness, Denies numbness, Denies radiating pain into limb and Denies tingling Neuro Denies abnormal gait, Denies dizziness, Denies numbness and Denies tingling Endo Denies fatigue and Denies palpitations Physical Exam Vital Signs: Last Vital Signs Pulse 71 01/16/24 10:06 BP 138/70 01/16/24 10:06 BMI result Body Mass Index 28.1 Const General: comfortable and no acute distress Orientation/consciousness: patient oriented x3 HEENT Other: Unremarkable Head: Yes normal to inspection Neck Neck: Yes normal visual inspection Chest Chest palpation & inspection: normal inspection of the chest Resp Auscultation: clear to auscultation bilaterally Cardio Palpation: normal PMI Heart sounds: S1 normal heart sound present, S2 normal heart sound present, no gallops, no murmurs and no rubs GI Palpation (GI): Soft to palpation Back/Spine/Pelvis Other: unremarkable Skin General skin exam: no rashes or lesions noted Neuro General: patient oriented x3 Extrem General: Yes normal to inspection Psych Mental Status: mental status grossly normal Office Procedures EKG Details: EKG with underlying sinus rhythm; SC prolongation to 266 millisecond; left bundle-branch block pattern. [id number], Complete Assessment & Plan Assessment & Plan (1) CAD (coronary artery disease): Code(s): I25.10 - Atherosclerotic heart disease of [place] coronary artery without angina pectoris Category: Medical Qualifiers: Associated angina: with stable angina Coronary Disease-Associated Artery/Lesion type: [place] artery [place] vs. transplanted heart: [place] heart Qualified Code(s): I25.118 - Atherosclerotic heart disease of [place] coronary artery with other forms of angina pectoris (2) Angina pectoris: Comment: stable, Code(s): I20.9 - Angina pectoris, unspecified Category: Medical (3) LBBB (left bundle branch block): Code(s): I44.7 - Left bundle-branch block, unspecified Category: Medical Plan Cardiac studies reviewed. In the stress test, he did upto 11METS but developed chest tightness. Perfusion component reported to have possible severe ischemia in the inferior/inferolateral wall and moderate density lateral wall ischemia. LVEF was 38% with stress and 57% with rest. Reported to have transient ischemic dilatation. Echocardiogram with LVEF of 55-60%. Inferior/inferoseptal/inferolateral hypokinesis. Cardiac catheterization showed HEALTH INFORMATICS SPECIALIST of the RCA with [id number] collaterals; diffuse LAD disease and severe ostial D1/D2/OM1 stenosis. Seen cardiac surgeon but not felt to be a good surgical candidate due to aortic calcification. Previously discussed with , and PCI to LAD will require multiple stents as it is diffuse disease. RCA has HEALTH INFORMATICS SPECIALIST. Overall, he seems to be fairly stable on medical therapy and hence continue without changes. Continue aspirin, long-acting nitrates, metoprolol ER, amlodipine and statins. Sublingual nitroglycerin as needed. Left bundle-branch block seems to be a new finding. Suspected related to underlying coronary disease. We discussed about this today. We also discussed about progression of conduction system disease and possibility of pacemaker placement in the future. They understand. If any concerning symptoms like dizziness or presyncope, advised to seek emergency help. Follow-up in 6 months. Coding Level of Care Code Est Pt Level 4 (74218) Diagnoses Coronary artery disease of [place] artery of [place] heart with stable angina pectoris I25.118 Associated angina: with stable angina Coronary Disease-Associated Artery/Lesion type: [place] artery [place] vs. transplanted heart: [place] heart Angina pectoris I20.9 LBBB (left bundle branch block) I44.7 CPT Codes EKG - CPT: 79914-Kpmoduwrotsupannw, Complete ([id number])
[2024-01-16 10:06] VITALS: BP 138/70; PULSE 71; BMI 28.1
== END 2024-01-16 10:37 | disposition home or self-care (01) ==
PROVIDERS: PCP Internal Medicine; Visit Provider Internal Medicine
DX: I25.118 Atherosclerotic heart disease of native coronary artery with other forms of angina pectoris (principal); I44.7 Left bundle-branch block, unspecified
CPT/HCPCS: 93010; 99214

== ENCOUNTER → 2024-01-16 09:36 | Outpatient (BNVA) | payer MEDICARE, SELFPAY | PROVIDERS: PCP Internal Medicine; Visit Provider Internal Medicine | DX: I25.118 Atherosclerotic heart disease of native coronary artery with other forms of angina pectoris (principal); I44.7 Left bundle-branch block, unspecified; I44.0 Atrioventricular block, first degree; R94.31 Abnormal electrocardiogram [ECG] [EKG] | CPT/HCPCS: 93005; 99212 ==

== ENCOUNTER 2024-03-04 09:12 | Outpatient (REF) | payer MEDICARE, SELFPAY ==
[2024-03-04 13:06] LABS: MANUAL DIFF FLAG NO
[2024-03-04 13:21] LABS: Basophils Percent Auto 0.4 % (0-2); Eosinophils Absolute Auto 0.1 X10*3/uL (0.0-0.4); Eosinophils Percent Auto 1.4 % (0-4); Hematocrit 40.9 % (42.0-52.0); Hemoglobin 13.8 g/dl (14.0-18.0); Imm Gran Abs Auto 0.01 X10*3/uL (0.00-0.03); Imm Gran Pct Auto 0.1 % (0.0-0.4); Lymphocytes Absolute Auto 3.1 X10*3/uL (1.2-4.9); Lymphocytes Percent Auto 42.8 % (20-40); Mean Corpuscular HGB Conc 33.7 g/dl (31.0-36.0); Mean Corpuscular Hemoglobin 32.2 pg (27.0-33.0); Mean Corpuscular Volume 95.6 fL (80.0-98.0); Mean Platelet Volume 9.5 fL (9.4-12.4); Monocytes Absolute Auto 0.6 X10*3/uL (0.1-1.2); Monocytes Percent Auto 8.1 % (2-11); Neutrophils Absolute Auto 3.4 x10*3/uL (2.0-8.3); Neutrophils Percent Auto 47.2 % (45-73); Platelet Count 243 X10*3/uL (160-400); Red Blood Count 4.28 X10*6/uL (4.60-5.80); Red Cell Distribution Width 14.7 % (11.0-16.0); White Blood Count 7.2 X10*3/uL (4.8-10.8)
[2024-03-04 13:38] LABS: Estimated Average Glucose 148 mg/dL; Hemoglobin A1C 181.2816 umol/L; Hemoglobin A1c % 6.8 % (<6.0)
[2024-03-04 14:40] LABS: Alanine Aminotransferase 23 U/L (0-40); Albumin Level 3.9 g/dL (3.5-5.0); Alkaline Phosphatase 57 U/L (39-117); Anion Gap 11 (12-20); Aspartate Amino Transferase 27 U/L (5-37); Bilirubin Total 0.6 mg/dL (0.0-1.0); Blood Urea Nitrogen 14 mg/dL (9-16); Calcium 8.9 mg/dL (8.4-10.2); Carbon Dioxide 26 mmol/L (22-29); Chloride 108 mmol/L (96-108); Cholesterol 110 mg/dL (<200); Estimated Glomerular Filt Rate > 60; Glucose Fasting 138 mg/dL (60-99); HDL Cholesterol 47 mg/dL (>40); LDL Cholesterol Calculated 29 mg/dL (<100); Potassium 4.2 mmol/L (3.3-5.1); Sodium 141 mmol/L (135-145); Triglycerides 174 mg/dL (<150)
== END 2024-03-04 09:13 | disposition home or self-care (01) ==
LOC: HO.HMGCLDS 09:12
PROVIDERS: PCP Internal Medicine; Visit Provider Internal Medicine
DX: R73.9 Hyperglycemia, unspecified (principal); E78.5 Hyperlipidemia, unspecified; I25.118 Atherosclerotic heart disease of native coronary artery with other forms of angina pectoris
CPT/HCPCS: 36415; 80053; 80061; 83036; 85025

== ENCOUNTER 2024-03-11 10:53 | Outpatient (AMB) | payer MEDICARE, SELFPAY ==
[2024-03-11 11:11] VITALS: BP 128/76; PULSE 84; O2SAT 95; BMI 28.0
--- NOTE | 2024-03-11 11:11 | MHC.PC.OV ---
Vital Signs 03/11/24 11:11 Height 5 ft 8 in Weight 184 lb BMI 28.0 BP 128/76 Blood Pressure Location Lt brachial Position Sitting Pulse 84 Pulse Source Pulse Oximeter Pulse Oximetry (%) 95 Oxygen Delivery Method Room Air Intake Visit Reasons: 6M F/U CAD Intake Note: Pt is here today for 6 months follow up visit. Pt states that he needs a refill on his medications. Allergies No Known Allergies Allergy (Verified 03/11/24 11:26) Medication List - Last Reconciled 03/11/24 by Jessica Merritt MD amlodipine 2.5 mg PO DAILY aspirin (Adult Low Dose Aspirin) 81 mg PO DAILY isosorbide mononitrate ER 30 mg PO DAILY metoprolol succinate ER (Toprol XL) 25 mg PO DAILY nitroglycerin 0.4 mg sublingual Q5M PRN rosuvastatin 40 mg PO DAILY Tobacco use date assessed: 03/11/24 Fall risk assessment: No Falls in past year Last assessed Fall Risk: 03/11/24 Dental Screening Dental Screen Date: 03/11/24 Did you have a dental visit in the last 12 months?: Yes Did you have a dental problem in the last 6 months where you did not have access to dental care?: No Was dental information given to patient?: Patient has dentist HPI 6M F/U CAD HPI Details Pt presents for HTN, hyperlipid, CAD, stable angina, stable on meds. PFSH Medical History Melanoma Blepharoptosis, bilateral Hyperglycemia Annual physical exam BPH (benign prostatic hyperplasia) Hyperlipidemia CAD (coronary artery disease) Surgical History H/O colonoscopy Nephrolithiasis Family History Father CAD (coronary artery disease) Brother CAD (coronary artery disease) Social History Housing: House Patient Tobacco Use Status: Former Tobacco user e-Cigarette/Vaping Use: Never Used service: No Current occupational status: retired Cognitive needs: No Hearing needs: No Vision needs: No Questionnaire PHQ-9 Over the last 2 weeks, how often have you been bothered by any of the following problems? 1. Little interest or pleasure in doing things: not at all 2. Feeling down, depressed, or hopeless: not at all 3. Trouble falling or staying asleep, or sleeping too much: not at all 4. Feeling tired or having little energy: not at all 5. Poor appetite or overeating: not at all 6. Feeling bad about yourself - or that you are a failure or have let yourself or your family down: not at all 7. Trouble concentrating on things, such as reading the newspaper or watching television: not at all 8. Moving or speaking so slowly that other people could have noticed. Or the opposite - being so fidgety or restless that you have been moving around a lot more than usual: not at all 9. Thoughts that you would be better off or of hurting yourself in some way: not at all Total score: 0 Depression Screening Interpretation: Negative Depression Screening Done: Yes 88158 - PHQ-9 Billing: Yes Source: Developed by Drs. Leodan Dee, Xochitl Martínez, Leroy John and colleagues, with an educational jessica from [employer]. Thrive Questionnaire Date Thrive assessed: 03/11/24 I am a: Patient What is your living situation today?: I have a steady place to live Within the past 12 months, did the food you bought not last and you didn't have the money to get more?: Never true Within the past 12 months, did you worry whether your food would run out before you got money to buy more?: Never true Do you have trouble paying for medicines?: No Do you have trouble getting transportation to medical appointments?: No Do you have trouble paying your heating and electricity bill?: No Do you have trouble taking care of your child, family member or friend?: No Do you have trouble with day-to-day activities such as bathing, preparing meals, shopping, managing finances, etc.?: No Are you currently unemployed and looking for a job?: No Are you interested in more education?: No Please select the resources that you would like help with: None Currently or been in a relationship where the following occur: I choose not to answer THRIVE Score: 0 AUDIT C Alcohol Use Questionnaire (AUDIT-C) 1. How often do you have a drink containing alcohol?: Never 3. How often do you have six or more drinks on one occasion?: Never Total Score: 0 CADE-7 AMB Questionnaire CADE-7 Date CADE - 7 assessed: 03/11/24 Feeling nervous, anxious, or on edge: 0 = Not at all Not being able to stop or control worryin = Not at all Worrying too much about different things: 0 = Not at all Trouble relaxin = Not at all Being so restless that it is hard to sit still: 0 = Not at all Becoming easily annoyed or irritable: 0 = Not at all Feeling afraid as if something awful might happen: 0 = Not at all Total CADE-7 score (0-4 normal; 5-9 mild; 10-14 moderate; 15-21 severe): 0 Source: Developed by Drs. Leodan Dee, Xochitl Martínez, Leroy John and colleagues, with an educational jessica from [employer]. CADE-7 Assessment Billing CADE-7 Assessment Tool: CADE-7 Assessment 18392 Review of Systems Const All systems reviewed & are unremarkable except as noted in HPI and below Reports no additional complaints Eyes Reports no additional complaints ENT Reports no additional complaints Card Reports no additional complaints Resp Reports no additional complaints GI Reports no additional complaints Reports no additional complaints Physical exam (Primary Care) Vital Signs: Last Vital Signs Pulse 84 03/11/24 11:11 BP 128/76 03/11/24 11:11 Pulse Ox 95 03/11/24 11:11 Oxygen Delivery Method Room Air 03/11/24 11:11 BMI result Body Mass Index 28.0 Tobacco/Smoking Status: Tobacco use Status Tobacco use date assessed 03/11/24 03/11/24 11:12 Patient Tobacco Use Status Former Tobacco user 03/11/24 11:12 e-Cigarette/Vaping Use Never Used 03/11/24 11:12 PHQ-9: PHQ-9 Score PHQ-9: Total score 0 03/11/24 12:01 Depression Screening Interpretation: Negative Thrive Assessment: Date of Thrive Assessment Date Thrive assessed 03/11/24 03/11/24 11:29 Currently or been in a relationship where the following occur: I choose not to answer Const General: no acute distress HENMT Head: Yes normal to inspection Mouth: Normal oral and palatal mucosa present Neck Neck: Yes no lymphadenopathy and Yes supple Resp Effort & Inspection: normal respiratory effort Auscultation: clear to auscultation bilaterally Cardio Rate: regular rate Rhythm: regular rhythm Heart sounds: S1 normal heart sound present and S2 normal heart sound present GI Inspection: Yes normal to inspection Palpation (GI): Soft to palpation Percussion: Yes normal to percussion Auscultation: normal bowel sounds Coding Level of Care Code Est Pt Level 4 (65796) Diagnoses Coronary artery disease of [place] artery of [place] heart with stable angina pectoris I25.118 Associated angina: with stable angina Coronary Disease-Associated Artery/Lesion type: [place] artery [place] vs. transplanted heart: [place] heart Hyperlipidemia E78.5 HTN (hypertension) I10 Hyperglycemia R73.9 Additional Codes CADE-7 Assessment Billing - CADE-7 Assessment Tool: CADE-7 Assessment [id number] ([id number]) PHQ-9 - 30358 - PHQ-9 Billing: Yes ([id number]) Assessment & Plan Assessment & Plan (1) CAD (coronary artery disease): Code(s): I25.10 - Atherosclerotic heart disease of [place] coronary artery without angina pectoris Category: Medical Qualifiers: Associated angina: with stable angina Coronary Disease-Associated Artery/Lesion type: [place] artery [place] vs. transplanted heart: [place] heart Qualified Code(s): I25.118 - Atherosclerotic heart disease of [place] coronary artery with other forms of angina pectoris Plan: Continue current medications follow-up with the Cardiology (2) Hyperlipidemia: Code(s): E78.5 - Hyperlipidemia, unspecified Category: Medical Plan: Continue statin (3) HTN (hypertension): Code(s): I10 - Essential (primary) hypertension Category: Medical Plan: Continue current medications (4) Hyperglycemia: Code(s): R73.9 - Hyperglycemia, unspecified Category: Medical Plan: A1c is 6.8 ADA diet increase exercise weight loss discussed with the patient follow-up in 6 months with a fasting labs before Orders: Orders Hemoglobin A1c 6 Months E78.5 - Hyperlipidemia, unspecified, I10 - Essential (primary) hypertension, I20.9 - Angina pectoris, unspecified, I25.118 - Atherosclerotic heart disease of [place] coronary artery with other forms of angina pectoris, R73.9 - Hyperglycemia, unspecified Microalbumin, Random (w Creat) 6 Months E78.5 - Hyperlipidemia, unspecified, I10 - Essential (primary) hypertension, I20.9 - Angina pectoris, unspecified, I25.118 - Atherosclerotic heart disease of [place] coronary artery with other forms of angina pectoris, R73.9 - Hyperglycemia, unspecified Comprehensive [place]. Panel Fast 6 Months E78.5 - Hyperlipidemia, unspecified, I10 - Essential (primary) hypertension, I20.9 - Angina pectoris, unspecified, I25.118 - Atherosclerotic heart disease of [place] coronary artery with other forms of angina pectoris, R73.9 - Hyperglycemia, unspecified Complete Blood Count Auto Diff 6 Months E78.5 - Hyperlipidemia, unspecified, I10 - Essential (primary) hypertension, I20.9 - Angina pectoris, unspecified, I25.118 - Atherosclerotic heart disease of [place] coronary artery with other forms of angina pectoris, R73.9 - Hyperglycemia, unspecified Lipid Panel 6 Months E78.5 - Hyperlipidemia, unspecified, I10 - Essential (primary) hypertension, I20.9 - Angina pectoris, unspecified, I25.118 - Atherosclerotic heart disease of [place] coronary artery with other forms of angina pectoris, R73.9 - Hyperglycemia, unspecified
== END 2024-03-11 12:14 | disposition home or self-care (01) ==
PROVIDERS: PCP Internal Medicine; Visit Provider Internal Medicine
DX: I25.118 Atherosclerotic heart disease of native coronary artery with other forms of angina pectoris (principal); E78.5 Hyperlipidemia, unspecified; I10 Essential (primary) hypertension; R73.9 Hyperglycemia, unspecified

== ENCOUNTER → 2024-03-11 10:53 | Outpatient (BNVA) | payer MEDICARE, SELFPAY | PROVIDERS: PCP Internal Medicine; Visit Provider Internal Medicine | DX: I25.118 Atherosclerotic heart disease of native coronary artery with other forms of angina pectoris (principal); E78.5 Hyperlipidemia, unspecified; I10 Essential (primary) hypertension; R73.9 Hyperglycemia, unspecified; Z79.899 Other long term (current) drug therapy | CPT/HCPCS: 96127; 99212 ==

== ENCOUNTER 2024-07-24 09:10 | Outpatient (AMB) | payer MEDICARE, SELFPAY ==
[2024-07-24 09:41] VITALS: BP 124/72; PULSE 66; BMI 28.4
--- NOTE | 2024-07-24 09:41 | MHC.OFFVIS ---
Vital Signs 07/24/24 09:41 Height 5 ft 8 in Weight 186 lb 8.177 oz BMI 28.4 BP 124/72 Blood Pressure Location Rt brachial Position Sitting Pulse 66 Pulse Source Pulse Oximeter Intake Visit Reasons: 6 mth f/up Technical Specialist Cytogenetics Required: No Technical Specialist Cytogenetics Services: Technical Specialist Cytogenetics Offered & Declined Technical Specialist Cytogenetics Name: cyn/daughter Accompanied by: Daughter Allergies No Known Allergies Allergy (Verified 03/11/24 11:26) Medication List - Last Reconciled 07/24/24 by Rashid Frost MD amlodipine 2.5 mg PO DAILY aspirin (Adult Low Dose Aspirin) 81 mg PO DAILY isosorbide mononitrate ER 30 mg PO DAILY metoprolol succinate ER (Toprol XL) 25 mg PO DAILY nitroglycerin 0.4 mg sublingual Q5M PRN rosuvastatin 40 mg PO DAILY HPI Comments Details: Johana returns for follow-up regarding coronary artery disease. To recall, in the past he was seen regarding exertional chest pain and underwent further workup with catheterization. That showed multivessel disease and he was seen by cardiac surgeon. However, there was significant aortic calcification and hence he was not felt to be a good surgical candidate. He was placed on medical therapy for coronary disease/angina. Otherwise, in 2001, he underwent right coronary artery stenting. He only speaks Fijian. His daughter is with him and helps with translation. Overall, it seems that he is quite active without any major limitations. He does get exertional angina times and then he takes nitroglycerin and it resolved completely. He is able to walk at least 20 minutes without any issues. [facility] Medical History Melanoma Blepharoptosis, bilateral Hyperglycemia Annual physical exam BPH (benign prostatic hyperplasia) Hyperlipidemia CAD (coronary artery disease) Surgical History H/O colonoscopy Nephrolithiasis Family History Father CAD (coronary artery disease) Brother CAD (coronary artery disease) Social History Housing: House Patient Tobacco Use Status: Former Tobacco user e-Cigarette/Vaping Use: Never Used service: No Current occupational status: retired Cognitive needs: No Hearing needs: No Vision needs: No Review of Systems Const Denies chills, Denies fatigue, Denies fever(s), Denies frequent falls, Denies weakness, Denies weight gain and Denies weight loss ENT Denies dizziness Card Denies chest pain, Denies leg edema, Denies lightheadedness, Denies palpitations, Denies dyspnea and Denies dyspnea on exertion Resp Denies cough, Denies dyspnea and Denies dyspnea on exertion GI Denies hematochezia Musc Denies abnormal gait, Denies muscle weakness, Denies numbness, Denies radiating pain into limb and Denies tingling Neuro Denies abnormal gait, Denies dizziness, Denies frequent falls, Denies numbness, Denies tingling and Denies weakness Endo Denies fatigue and Denies palpitations Physical Exam Vital Signs: Last Vital Signs Pulse 66 07/24/24 09:41 BP 124/72 07/24/24 09:41 BMI result Body Mass Index 28.4 Const General: comfortable and no acute distress Orientation/consciousness: patient oriented x3 HEENT Other: Unremarkable Head: Yes normal to inspection Neck Neck: Yes normal visual inspection Chest Chest palpation & inspection: normal inspection of the chest Resp Auscultation: clear to auscultation bilaterally Cardio Palpation: normal PMI Heart sounds: S1 normal heart sound present, S2 normal heart sound present, no gallops, no murmurs and no rubs GI Palpation (GI): Soft to palpation Back/Spine/Pelvis Other: unremarkable Skin General skin exam: no rashes or lesions noted Neuro General: patient oriented x3 Extrem General: Yes normal to inspection Psych Mental Status: mental status grossly normal Assessment & Plan Assessment & Plan (1) CAD (coronary artery disease): Code(s): I25.10 - Atherosclerotic heart disease of [place] coronary artery without angina pectoris Category: Medical Qualifiers: Associated angina: with stable angina Coronary Disease-Associated Artery/Lesion type: [place] artery [place] vs. transplanted heart: [place] heart Qualified Code(s): I25.118 - Atherosclerotic heart disease of [place] coronary artery with other forms of angina pectoris (2) Angina pectoris: Comment: stable, Code(s): I20.9 - Angina pectoris, unspecified Category: Medical (3) LBBB (left bundle branch block): Code(s): I44.7 - Left bundle-branch block, unspecified Category: Medical Plan Cardiac studies reviewed. In the stress test, he did upto 11METS but developed chest tightness. Perfusion component reported to have possible severe ischemia in the inferior/inferolateral wall and moderate intensity lateral wall ischemia. LVEF was 38% with stress and 57% with rest. Reported to have transient ischemic dilatation. Echocardiogram with LVEF of 55-60%. Inferior/inferoseptal/inferolateral hypokinesis. Cardiac catheterization showed SHIPPING AND RECEIVING of the RCA with [id number] collaterals; diffuse LAD disease and severe ostial D1/D2/OM1 stenosis. Seen cardiac surgeon but not felt to be a good surgical candidate due to aortic calcification. Previously discussed with , and PCI to LAD will require multiple stents as it has diffuse disease. RCA has SHIPPING AND RECEIVING. He is stable for the most part with occasional exertional angina that relieves promptly with nitroglycerin. Hence continue current regimen including aspirin, beta-blockers, long-acting nitrates. We can go up on the isosorbide mononitrate dosing to 60 mg daily. If he is still gets any exertional angina, then consider Ranexa. Blood pressure stable on amlodipine. No changes. Continue statins. LDL 29 mg/dL. With regard to left bundle-branch block, no specific implications. Likely all related to underlying coronary disease. Discussed with daughter who came for appointment. She acted as plant health manager. Follow-up in 6 months. Medications: New isosorbide mononitrate ER 60 mg PO DAILY 90 tabs 3RF Discontinued isosorbide mononitrate ER Discontinued Reason: Doctor's Order 30 mg PO DAILY 90 tabs 3RF Patient Instructions: - Take 60 mg of isosorbide daily as prescribed. - Walk daily, but slow down or rest if you feel chest pain or pressure. - Use nitroglycerin if you feel chest pain. - Let me know if your symptoms become more frequent or severe. - Follow up with me if you have concerns or questions about your treatment. - Call if you experience severe chest pain or other serious symptoms. Coding Level of Care Code Est Pt Level 4 (81376) Complex EM visit Add On G2211 Diagnoses Coronary artery disease of [place] artery of [place] heart with stable angina pectoris I25.118 Associated angina: with stable angina Coronary Disease-Associated Artery/Lesion type: [place] artery [place] vs. transplanted heart: [place] heart Angina pectoris I20.9 LBBB (left bundle branch block) I44.7
== END 2024-07-24 10:02 | disposition home or self-care (01) ==
LOC: HO.HCS 09:11
PROVIDERS: PCP Internal Medicine; Visit Provider Internal Medicine
DX: I25.118 Atherosclerotic heart disease of native coronary artery with other forms of angina pectoris (principal); I44.7 Left bundle-branch block, unspecified
CPT/HCPCS: 99214; G2211

== ENCOUNTER → 2024-07-24 09:10 | Outpatient (BNVA) | payer MEDICARE, SELFPAY | PROVIDERS: PCP Internal Medicine; Visit Provider Internal Medicine | DX: I25.118 Atherosclerotic heart disease of native coronary artery with other forms of angina pectoris (principal); I44.7 Left bundle-branch block, unspecified | CPT/HCPCS: 99212 ==

== ENCOUNTER 2024-09-02 06:51 | Outpatient (REF) | payer MEDICARE, SELFPAY ==
[2024-09-02 10:13] LABS: MANUAL DIFF FLAG NO
[2024-09-02 10:30] LABS: Estimated Average Glucose 146 mg/dL; Hemoglobin A1c % 6.7 % (<6.0)
[2024-09-02 10:34] LABS: Basophils Percent Auto 0.6 % (0-2); Eosinophils Absolute Auto 0.1 X10*3/uL (0.0-0.4); Eosinophils Percent Auto 1.8 % (0-4); Hematocrit 39.3 % (42.0-52.0); Imm Gran Abs Auto 0.02 X10*3/uL (0.00-0.03); Imm Gran Pct Auto 0.3 % (0.0-0.4); Lymphocytes Absolute Auto 3.7 X10*3/uL (1.2-4.9); Lymphocytes Percent Auto 52.5 % (20-40); Mean Corpuscular HGB Conc 33.1 g/dl (31.0-36.0); Mean Corpuscular Hemoglobin 31.6 pg (27.0-33.0); Mean Corpuscular Volume 95.6 fL (80.0-98.0); Mean Platelet Volume 9.9 fL (9.4-12.4); Monocytes Absolute Auto 0.6 X10*3/uL (0.1-1.2); Monocytes Percent Auto 8.9 % (2-11); Neutrophils Absolute Auto 2.5 x10*3/uL (2.0-8.3); Neutrophils Percent Auto 35.9 % (45-73); Platelet Count 219 X10*3/uL (160-400); Red Blood Count 4.11 X10*6/uL (4.60-5.80); Red Cell Distribution Width 14.4 % (11.0-16.0); White Blood Count 7.1 X10*3/uL (4.8-10.8)
[2024-09-02 10:37] LABS: Alanine Aminotransferase 17 U/L (0-40); Albumin Level 3.8 g/dL (3.5-5.0); Alkaline Phosphatase 47 U/L (39-117); Anion Gap 11 (12-20); Aspartate Amino Transferase 33 U/L (5-37); Bilirubin Total 0.5 mg/dL (0.0-1.0); Blood Urea Nitrogen 19 mg/dL (9-16); Calcium 8.5 mg/dL (8.4-10.2); Carbon Dioxide 24 mmol/L (22-29); Chloride 109 mmol/L (96-108); Cholesterol 98 mg/dL (<200); Estimated Glomerular Filt Rate > 60; Glucose Fasting 122 mg/dL (60-99); HDL Cholesterol 40 mg/dL (>40); LDL Cholesterol Calculated 37 mg/dL (<100); Potassium 4.1 mmol/L (3.3-5.1); Sodium 140 mmol/L (135-145); Total Protein 6.5 g/dL (6.5-8.0); Triglycerides 108 mg/dL (<150)
[2024-09-02 11:17] LABS: Creatinine Urine 199.69 mg/dL
== END 2024-09-02 06:52 | disposition home or self-care (01) ==
LOC: HO.HMGCLDS 06:51
PROVIDERS: PCP Internal Medicine; Visit Provider Internal Medicine
DX: R73.9 Hyperglycemia, unspecified (principal); E78.5 Hyperlipidemia, unspecified; I25.118 Atherosclerotic heart disease of native coronary artery with other forms of angina pectoris; I10 Essential (primary) hypertension
CPT/HCPCS: 36415; 80053; 80061; 82043; 82570; 83036; 85025

== ENCOUNTER 2024-09-05 13:02 | Outpatient (AMB) | payer MEDICARE, SELFPAY ==
[2024-09-05 13:10] VITALS: BP 120/66; PULSE 68; RESP 18; TEMP 36.6; O2SAT 95; BMI 28.7
--- NOTE | 2024-09-05 13:10 | MHC.PC.OV ---
Vital Signs 09/05/24 13:10 Height 5 ft 8 in Weight 189 lb BMI 28.7 BP 120/66 Blood Pressure Location Lt brachial Position Sitting Respiration 18 Pulse 68 Pulse Source Pulse Oximeter Temp 97.9 F Temp Source Oral Pulse Oximetry (%) 95 Oxygen Delivery Method Room Air Intake Visit Reasons: Annual PE Intake Note: Pt is here today for PE. Allergies No Known Allergies Allergy (Verified 09/05/24 13:11) Medication List - Last Reconciled 09/05/24 by Jessica Merritt MD amlodipine 2.5 mg PO DAILY aspirin (Adult Low Dose Aspirin) 81 mg PO DAILY isosorbide mononitrate ER 60 mg PO DAILY metoprolol succinate ER (Toprol XL) 25 mg PO DAILY nitroglycerin 0.4 mg sublingual Q5M PRN rosuvastatin 40 mg PO DAILY Tobacco use date assessed: 09/05/24 Fall risk assessment: No Falls in past year Last assessed Fall Risk: 09/05/24 Dental Screening Dental Screen Date: 09/05/24 Did you have a dental visit in the last 12 months?: No Did you have a dental problem in the last 6 months where you did not have access to dental care?: No Was dental information given to patient?: Patient declined HPI Annual PE HPI Details Pt presents for PE. [facility] Medical History (Updated 09/05/24 @ 14:09 by Jessica Merritt MD) DM type 2 (diabetes mellitus, type 2) Melanoma Blepharoptosis, bilateral Hyperglycemia Annual physical exam BPH (benign prostatic hyperplasia) Hyperlipidemia CAD (coronary artery disease) Surgical History H/O colonoscopy Nephrolithiasis Family History Father CAD (coronary artery disease) Brother CAD (coronary artery disease) Social History Housing: House Patient Tobacco Use Status: Former Tobacco user e-Cigarette/Vaping Use: Never Used service: No Current occupational status: retired Cognitive needs: No Hearing needs: No Vision needs: No Questionnaire PHQ-9 Over the last 2 weeks, how often have you been bothered by any of the following problems? 1. Little interest or pleasure in doing things: not at all 2. Feeling down, depressed, or hopeless: not at all 3. Trouble falling or staying asleep, or sleeping too much: not at all 4. Feeling tired or having little energy: not at all 5. Poor appetite or overeating: not at all 6. Feeling bad about yourself - or that you are a failure or have let yourself or your family down: not at all 7. Trouble concentrating on things, such as reading the newspaper or watching television: not at all 8. Moving or speaking so slowly that other people could have noticed. Or the opposite - being so fidgety or restless that you have been moving around a lot more than usual: not at all 9. Thoughts that you would be better off or of hurting yourself in some way: not at all Total score: 0 Depression Screening Interpretation: Negative Depression Screening Done: Yes 12531 - PHQ-9 Billing: Yes Source: Developed by Drs. Leodan Dee, Xochitl Martínez, Leroy John and colleagues, with an educational jessica from [employer]. Thrive Questionnaire Date Thrive assessed: 09/05/24 I am a: Patient What is your living situation today?: I have a steady place to live Within the past 12 months, did the food you bought not last and you didn't have the money to get more?: Never true Within the past 12 months, did you worry whether your food would run out before you got money to buy more?: Never true Do you have trouble paying for medicines?: No Do you have trouble getting transportation to medical appointments?: No Do you have trouble paying your heating and electricity bill?: No Do you have trouble taking care of your child, family member or friend?: No Do you have trouble with day-to-day activities such as bathing, preparing meals, shopping, managing finances, etc.?: No Are you currently unemployed and looking for a job?: No Are you interested in more education?: No Please select the resources that you would like help with: None Currently or been in a relationship where the following occur: I choose not to answer THRIVE Score: 0 AUDIT C Alcohol Use Questionnaire (AUDIT-C) 1. How often do you have a drink containing alcohol?: Never 3. How often do you have six or more drinks on one occasion?: Never Total Score: 0 CADE-7 AMB Questionnaire CADE-7 Date CADE - 7 assessed: 03/11/24 Source: Developed by Drs. Leodan Dee, Xochitl Martínez, Leroy John and colleagues, with an educational jessica from [employer]. Review of Systems Const All systems reviewed & are unremarkable except as noted in HPI and below Reports no additional complaints Eyes Reports no additional complaints ENT Reports no additional complaints Card Reports no additional complaints Resp Reports no additional complaints GI Reports no additional complaints Reports no additional complaints Physical exam (Primary Care) Vital Signs: Last Vital Signs Temp 97.9 F 09/05/24 13:10 Pulse 68 09/05/24 13:10 Resp 18 09/05/24 13:10 BP 120/66 09/05/24 13:10 Pulse Ox 95 09/05/24 13:10 Oxygen Delivery Method Room Air 09/05/24 13:10 BMI result Body Mass Index 28.7 Tobacco/Smoking Status: Tobacco use Status Tobacco use date assessed 09/05/24 09/05/24 13:12 Patient Tobacco Use Status Former Tobacco user 09/05/24 13:12 e-Cigarette/Vaping Use Never Used 09/05/24 13:12 PHQ-9: PHQ-9 Score PHQ-9: Total score 0 09/05/24 13:51 Depression Screening Interpretation: Negative Thrive Assessment: Date of Thrive Assessment Date Thrive assessed 09/05/24 09/05/24 13:17 Currently or been in a relationship where the following occur: I choose not to answer Const General: no acute distress HENMT Head: Yes normal to inspection Ears: hearing grossly normal bilaterally Face and sinus: Yes normal facial exam Mouth: Normal oral and palatal mucosa present Throat: Yes posterior oropharynx normal Eyes General: appearance normal, both eyes and all related structures Neck Neck: Yes no lymphadenopathy and Yes supple Resp Effort & Inspection: normal respiratory effort Auscultation: clear to auscultation bilaterally Cardio Rhythm: regular rhythm Heart sounds: S1 normal heart sound present and S2 normal heart sound present GI Inspection: Yes normal to inspection Palpation (GI): Soft to palpation Percussion: Yes normal to percussion Auscultation: normal bowel sounds Immunizations pneumoc 20-malissa conj-dip cr(PF) 0.5 mL IM syringe Performing Provider: Jessica Merritt MD Performing Location: [facility] [place] [facility] Administered by: BALTAZAR Matias on 09/05/24 14:12 Dose Route Admin Location Dispensed Lot Number Expiration Date NDC Machine Ii Trimmer 0.5 mL IM Left Deltoid 0.5 mL [id number] 09/02/25 5035-1206-85 [employer]/PFIZER Total Dispensed Waste 0.5 mL 0 % VIS Given Date VIS Provided VIS Publication Date 09/05/24 Single Vaccine 24 Eligibility Eligibility Date Funding Source Not [facility] Eligible 09/05/24 Private Coding Level of Care Code Est Pt Prev Care >65y(63284) Diagnoses Coronary artery disease of [place] artery of [place] heart with stable angina pectoris I25.118 Coronary Disease-Associated Artery/Lesion type: [place] artery [place] vs. transplanted heart: [place] heart Associated angina: with stable angina DM type 2 (diabetes mellitus, type 2) E11.9 HTN (hypertension) I10 Additional Codes PHQ-9 - 09330 - PHQ-9 Billing: Yes ([id number]) Assessment & Plan Assessment & Plan (1) CAD (coronary artery disease): Comment: Multivessel disease not surgical candidate due to severe aortic calcifications, s/p RCA stent 2001, medical management , Established with Cardiology Code(s): I25.10 - Atherosclerotic heart disease of [place] coronary artery without angina pectoris Category: Medical Qualifiers: Coronary Disease-Associated Artery/Lesion type: [place] artery [place] vs. transplanted heart: [place] heart Associated angina: with stable angina Qualified Code(s): I25.118 - Atherosclerotic heart disease of [place] coronary artery with other forms of angina pectoris Plan: Continue current medications, follow-up with the Cardiology (2) DM type 2 (diabetes mellitus, type 2): Comment: Diet controlled Code(s): E11.9 - Type 2 diabetes mellitus without complications Category: Medical Plan: A1c is 6.7. ADA diet increase exercise weight loss discussed with the patient he declined taking medications (3) HTN (hypertension): Code(s): I10 - Essential (primary) hypertension Category: Medical Plan: Continue current medications Orders: Orders Complete Blood Count Auto Diff 6 Months E11.9 - Type 2 diabetes mellitus without complications, I25.118 - Atherosclerotic heart disease of [place] coronary artery with other forms of angina pectoris Comprehensive [place]. Panel Fast 6 Months E11.9 - Type 2 diabetes mellitus without complications, I25.118 - Atherosclerotic heart disease of [place] coronary artery with other forms of angina pectoris Pneumococcal 20 Immunization Today Z23 - Encounter for immunization Lipid Panel 6 Months E11.9 - Type 2 diabetes mellitus without complications, I25.118 - Atherosclerotic heart disease of [place] coronary artery with other forms of angina pectoris Hemoglobin A1c 6 Months E11.9 - Type 2 diabetes mellitus without complications, I25.118 - Atherosclerotic heart disease of [place] coronary artery with other forms of angina pectoris Medications: Refilled metoprolol succinate ER (Toprol XL) 25 mg PO DAILY 90 tabs 3RF I20.9 - Angina pectoris, unspecified amlodipine 2.5 mg PO DAILY 90 tabs 3RF rosuvastatin 40 mg PO DAILY 90 tabs 3RF
== END 2024-09-05 14:14 | disposition home or self-care (01) ==
LOC: HO.HMCC 13:03
PROVIDERS: PCP Internal Medicine; Visit Provider Internal Medicine
DX: Z00.00 Encounter for general adult medical examination without abnormal findings (principal); I25.118 Atherosclerotic heart disease of native coronary artery with other forms of angina pectoris; E11.9 Type 2 diabetes mellitus without complications; I10 Essential (primary) hypertension; Z23 Encounter for immunization

== ENCOUNTER → 2024-09-05 13:02 | Outpatient (BNVA) | payer MEDICARE, SELFPAY | PROVIDERS: PCP Internal Medicine; Visit Provider Internal Medicine | DX: I25.118 Atherosclerotic heart disease of native coronary artery with other forms of angina pectoris (principal); E11.9 Type 2 diabetes mellitus without complications; I10 Essential (primary) hypertension; Z23 Encounter for immunization | CPT/HCPCS: 90471; 90677; 96127; 99397 ==

== ENCOUNTER 2025-01-29 08:14 | Outpatient (AMB) | payer MEDICARE, SELFPAY ==
[2025-01-29 08:38] VITALS: BP 124/68; PULSE 75; BMI 28.5
--- NOTE | 2025-01-29 08:38 | MHC.OFFVIS ---
Vital Signs 01/29/25 08:38 Height 5 ft 8 in Weight 187 lb 6.287 oz BMI 28.5 BP 124/68 Blood Pressure Location Lt brachial Position Sitting Pulse 75 Pulse Source Monitor Intake Visit Reasons: 6 mth f/up Limo Driver Required: Yes Limo Driver Services: Limo Driver Offered & Declined Accompanied by: Daughter Allergies No Known Allergies Allergy (Verified 09/05/24 13:11) Medication List - Last Reconciled 01/29/25 by Rashid Frost MD amlodipine 2.5 mg PO DAILY aspirin 81 mg PO DAILY isosorbide mononitrate ER 60 mg PO DAILY metoprolol succinate ER (Toprol XL) 25 mg PO DAILY nitroglycerin 0.4 mg sublingual Q5M PRN rosuvastatin 40 mg PO DAILY HPI Comments Details: Johana returns for follow-up regarding coronary artery disease. To recall, in the past he was seen regarding exertional chest pain and underwent further workup with catheterization. That showed multivessel disease and he was seen by cardiac surgeon. However, there was significant aortic calcification and hence he was not felt to be a good surgical candidate. He was placed on medical therapy for coronary disease/angina. Otherwise, in 2001, he underwent right coronary artery stenting. He only speaks Yakut. His daughter is with him and helps with translation. Since last seen, he states he is feeling good. No cardiac symptoms whatsoever. [facility] Medical History (Updated 01/29/25 @ 09:08 by Rashid Frost MD) DM type 2 (diabetes mellitus, type 2) Melanoma Blepharoptosis, bilateral Hyperglycemia Annual physical exam BPH (benign prostatic hyperplasia) Hyperlipidemia CAD (coronary artery disease) Surgical History H/O colonoscopy Nephrolithiasis Family History Father CAD (coronary artery disease) Brother CAD (coronary artery disease) Social History Housing: House Patient Tobacco Use Status: Former Tobacco user e-Cigarette/Vaping Use: Never Used service: No Current occupational status: retired Cognitive needs: No Hearing needs: No Vision needs: No Review of Systems Const Denies weakness ENT Denies dizziness Card Denies chest pain, Denies chest pain with activity, Denies syncope, Denies rapid heart rate, Denies pedal edema, Denies edema, Denies leg edema, Denies lightheadedness, Denies palpitations, Denies dyspnea, Denies dyspnea on exertion and Denies orthopnea Resp Denies cough, Denies dyspnea and Denies dyspnea on exertion GI Denies hematochezia and Denies change in stool character Musc Denies abnormal gait, Denies muscle cramps, Denies muscle weakness, Denies numbness, Denies radiating pain into limb and Denies tingling Neuro Denies abnormal gait, Denies dizziness, Denies syncope, Denies numbness, Denies tingling and Denies weakness Endo Denies palpitations Physical Exam Vital Signs: Last Vital Signs Pulse 75 01/29/25 08:38 BP 124/68 01/29/25 08:38 BMI result Body Mass Index 28.5 Const General: comfortable and no acute distress Orientation/consciousness: patient oriented x3 HEENT Other: Unremarkable Head: Yes normal to inspection Neck Neck: Yes normal visual inspection Chest Chest palpation & inspection: normal inspection of the chest Resp Auscultation: clear to auscultation bilaterally Cardio Palpation: normal PMI Heart sounds: S1 normal heart sound present, S2 normal heart sound present, no gallops, no murmurs and no rubs GI Palpation (GI): Soft to palpation Back/Spine/Pelvis Other: unremarkable Skin General skin exam: no rashes or lesions noted Neuro General: patient oriented x3 Extrem General: Yes normal to inspection Psych Mental Status: mental status grossly normal Office Procedures EKG Details: EKG with underlying sinus rhythm at 75/Min; prolonged OR to 248 milliseconds; left bundle-branch block pattern. [id number], Complete Assessment & Plan Assessment & Plan (1) CAD (coronary artery disease): Code(s): I25.10 - Atherosclerotic heart disease of [place] coronary artery without angina pectoris Category: Medical Qualifiers: Associated angina: with stable angina Coronary Disease-Associated Artery/Lesion type: [place] artery [place] vs. transplanted heart: [place] heart Qualified Code(s): I25.118 - Atherosclerotic heart disease of [place] coronary artery with other forms of angina pectoris (2) Angina pectoris: Comment: stable, Code(s): I20.9 - Angina pectoris, unspecified Category: Medical (3) LBBB (left bundle branch block): Code(s): I44.7 - Left bundle-branch block, unspecified Category: Medical Plan Cardiac studies reviewed. In the stress test, he did upto 11METS but developed chest tightness. Perfusion component reported to have possible severe ischemia in the inferior/inferolateral wall and moderate intensity lateral wall ischemia. LVEF was 38% with stress and 57% with rest. Reported to have transient ischemic dilatation. Echocardiogram with LVEF of 55-60%. Inferior/inferoseptal/inferolateral hypokinesis. Cardiac catheterization showed PILE DRIVER OPERATOR BARGE MOUNTED of the RCA with [id number] collaterals; diffuse LAD disease and severe ostial D1/D2/OM1 stenosis. Seen cardiac surgeon but not felt to be a good surgical candidate due to aortic calcification. Previously discussed with , and PCI to LAD will require multiple stents as it has diffuse disease. RCA has PILE DRIVER OPERATOR BARGE MOUNTED. Continue optimal medical therapy with aspirin, long-acting nitrates, metoprolol, amlodipine and statins. Sublingual nitroglycerin can be used as needed. Last LDL 37 mg/dL and triglycerides 108 mg/dL. With regard to left bundle-branch block, no specific implications at this time but will need monitoring for progressive conduction system disease. Discussed with daughter who came for appointment. She acted as director of occupational health. Discussion Notes I discussed with the patient and the patient's daughter that the patient is doing well overall. I reviewed the EKG results, explaining that while there are subtle changes from the one performed six months ago, the overall picture, including the left bundle branch block, is stable and not of significant concern, especially given the patient is asymptomatic. I advised the patient to continue all prescription medications. I recommended avoiding walks in the cold and suggested indoor walking as an alternative. We agreed to a follow-up visit in six months. Patient was informed and verbally consented to the use of an ambient scribe for clinic note documentation during this visit. Patient Instructions: - Continue to take your prescribed medications as directed. - For your daily walks, please try to walk indoors at a place like a mall when it is very cold outside. - Please schedule a follow-up appointment to be seen again in six months. Coding Level of Care Code Est Pt Level 4 (69871) Complex visit Add On G2211 Diagnoses Coronary artery disease of [place] artery of [place] heart with stable angina pectoris I25.118 Associated angina: with stable angina Coronary Disease-Associated Artery/Lesion type: [place] artery [place] vs. transplanted heart: [place] heart Angina pectoris I20.9 LBBB (left bundle branch block) I44.7 CPT Codes EKG - CPT: 56665-[id number], Complete ([id number])
== END 2025-01-29 08:56 | disposition home or self-care (01) ==
LOC: HO.HCS 08:15
PROVIDERS: PCP Internal Medicine; Visit Provider Internal Medicine
DX: I25.118 Atherosclerotic heart disease of native coronary artery with other forms of angina pectoris (principal); I20.9 Angina pectoris, unspecified; I44.7 Left bundle-branch block, unspecified
CPT/HCPCS: 93010; 99214; G2211

== ENCOUNTER → 2025-01-29 08:14 | Outpatient (BNVA) | payer MEDICARE, SELFPAY | PROVIDERS: PCP Internal Medicine; Visit Provider Internal Medicine | DX: I25.118 Atherosclerotic heart disease of native coronary artery with other forms of angina pectoris (principal); I44.7 Left bundle-branch block, unspecified; Z79.82 Long term (current) use of aspirin; Z87.891 Personal history of nicotine dependence; Z79.899 Other long term (current) drug therapy | CPT/HCPCS: 93005; 99212 ==